=== PATIENT | female | born 1965 | race Caucasian/White ===

== ENCOUNTER 2021-11-07 10:31 | Outpatient (REF) | payer MEDICAID, SELFPAY ==
--- NOTE | ~2021-11-07 | XR_ITS ---
EXAMINATION: XR KNEE, RIGHT CLINICAL INFORMATION: Right knee pain. COMPARISON: None TECHNIQUE: AP, tunnel, lateral, and sunrise views of the right knee. FINDINGS: There is no fracture, malalignment, or joint effusion. There are tiny marginal osteophytes of the patellofemoral compartment. There is no joint space narrowing. There are prominent enthesophytes at the quadriceps and patellar tendon insertion sites on the patella. XR/XR knee RT 4V IMPRESSION: Minor patellofemoral arthrosis. Prominent enthesophytes at the quadriceps and patellar tendon insertion sites on the patella.
== END 2021-11-07 10:32 | disposition home or self-care (01) ==
LOC: HO.XRAY 10:31
PROVIDERS: Visit Provider Family Medicine
DX: M25.561 Pain in right knee (principal)
CPT/HCPCS: 73564

== ENCOUNTER 2022-04-30 09:48 | Outpatient (REF) | payer MEDICAID, SELFPAY ==
--- NOTE | ~2022-04-30 | XR_ITS ---
EXAMINATION: XR KNEE, LEFT CLINICAL INFORMATION: Calf pain. COMPARISON: Left knee 06/26/2016 TECHNIQUE: Four views of the left knee. FINDINGS: There is mild loss of the patellofemoral joint space with anterior superior and anterior inferior patellar enthesophytes. No loose bodies. No joint effusion is seen. There are no bony erosive changes. There are anterior superior patellar enthesophytes. XR/XR knee LT 4V IMPRESSION: Mild degenerative changes of the patellofemoral compartment with anterior superior and anterior inferior patellar enthesophytes. No loose bodies or joint effusion is seen.
== END 2022-04-30 09:49 | disposition home or self-care (01) ==
LOC: HO.XRAY 09:48
PROVIDERS: PCP Internal Medicine Geriatric Medicine; Visit Provider Internal Medicine Geriatric Medicine
DX: M17.12 Unilateral primary osteoarthritis, left knee (principal)
CPT/HCPCS: 73564

== ENCOUNTER 2023-06-30 18:50 | Outpatient (REF) | payer MEDICAID, SELFPAY | END 2023-06-30 18:51 | disposition home or self-care (01) | LOC: HO.HHCL 18:50 | PROVIDERS: Visit Provider Registered Nurse | DX: L72.3 Sebaceous cyst (principal); L08.9 Local infection of the skin and subcutaneous tissue, unspecified | CPT/HCPCS: 87070; 87205 ==

== ENCOUNTER 2023-07-15 09:33 | Outpatient (REF) | payer MEDICAID, SELFPAY ==
[2023-07-15 12:01] LABS: Alanine Aminotransferase 12 U/L (0-31); Albumin Level 4.3 g/dL (3.5-5.0); Alkaline Phosphatase 52 U/L (39-117); Anion Gap 10 (12-20); Aspartate Amino Transferase 18 U/L (5-31); Bilirubin Total 0.5 mg/dL (0.0-1.0); Blood Urea Nitrogen 17 mg/dL (9-16); Calcium 10.7 mg/dL (8.4-10.2); Carbon Dioxide 28 mmol/L (22-29); Chloride 107 mmol/L (96-108); Cholesterol 169 mg/dL (<200); Estimated Glomerular Filt Rate > 60; Glucose Random 94 mg/dL (60-115); HDL Cholesterol 59 mg/dL (>40); LDL Cholesterol Calculated 100 mg/dL (<100); Potassium 4.2 mmol/L (3.3-5.1); Sodium 141 mmol/L (135-145); Total Protein 7.9 g/dL (6.5-8.0); Triglycerides 51 mg/dL (<150)
== END 2023-07-15 09:34 | disposition home or self-care (01) ==
LOC: HO.HHCL 09:33
PROVIDERS: Visit Provider Internal Medicine Geriatric Medicine
DX: Z13.1 Encounter for screening for diabetes mellitus (principal); Z13.220 Encounter for screening for lipoid disorders; I10 Essential (primary) hypertension
CPT/HCPCS: 36415; 80053; 80061

== ENCOUNTER 2023-11-03 15:02 | Outpatient (REF) | payer MEDICAID, SELFPAY ==
--- NOTE | ~2023-11-03 | XR_ITS ---
EXAMINATION: XR CERVICAL SPINE CLINICAL INFORMATION: Neck pain with radiculopathy lumbar COMPARISON: None available. TECHNIQUE: 3 views of the cervical spine were obtained. FINDINGS: No acute visible fracture or dislocation. Slight straightening of normal cervical curvature which may be secondary to patient positioning versus muscle spasm. Mild multilevel degenerative changes. Visualized dens is intact. Lateral masses are symmetric. Vertebral bodies and disc spaces are maintained. Prevertebral soft tissues are unremarkable. Posterior elements are intact. Paraspinal soft tissues are unremarkable. Visualized portions of the upper chest are unremarkable. XR/XR cervical spine 3V IMPRESSION: 1. No acute visible fracture or dislocation. 2. Slight straightening of normal cervical curvature which may be secondary to patient positioning versus muscle spasm. 3. Mild multilevel degenerative changes.
== END 2023-11-03 15:03 | disposition home or self-care (01) ==
LOC: HO.HHCX 15:02
PROVIDERS: Visit Provider Internal Medicine
DX: M54.2 Cervicalgia (principal)
CPT/HCPCS: 72040

== ENCOUNTER 2024-06-01 10:21 | Outpatient (REF) | payer MEDICAID, SELFPAY ==
[2024-06-01 13:14] LABS: Anion Gap 11 (12-20); Blood Urea Nitrogen 13 mg/dL (9-16); Calcium 10.5 mg/dL (8.4-10.2); Carbon Dioxide 29 mmol/L (22-29); Chloride 106 mmol/L (96-108); Estimated Glomerular Filt Rate > 60; Glucose Random 90 mg/dL (60-115); Potassium 4.4 mmol/L (3.3-5.1); Sodium 142 mmol/L (135-145)
== END 2024-06-01 10:22 | disposition home or self-care (01) ==
LOC: HO.HHCL 10:21
PROVIDERS: Visit Provider Internal Medicine Geriatric Medicine
DX: M54.2 Cervicalgia (principal); M79.2 Neuralgia and neuritis, unspecified; I10 Essential (primary) hypertension
CPT/HCPCS: 36415; 80048

== ENCOUNTER 2024-09-10 08:39 | Outpatient (REF) | payer MEDICAID, SELFPAY ==
[2024-09-13 01:04] LABS: TS Negative Control Passed; TS Panel A 0; TS Panel B 0; TS Positive Control Passed; TSpotTB Negative (Negative)
== END 2024-09-10 08:40 | disposition home or self-care (01) ==
LOC: HO.CHCLDS 08:39
PROVIDERS: Visit Provider Internal Medicine Geriatric Medicine
DX: Z11.1 Encounter for screening for respiratory tuberculosis (principal)
CPT/HCPCS: 36415; 86481

== ENCOUNTER 2024-11-26 10:54 | Outpatient (REF) | payer MEDICAID, SELFPAY ==
[2024-11-26 13:09] LABS: MANUAL DIFF FLAG NO
[2024-11-26 13:14] LABS: Basophils Percent Auto 0.6 % (0-2); Eosinophils Absolute Auto 0.2 X10*3/uL (0.0-0.4); Eosinophils Percent Auto 4.2 % (0-4); Hematocrit 41.8 % (37.0-47.0); Hemoglobin 13.7 g/dl (12.0-16.0); Imm Gran Abs Auto 0.01 X10*3/uL (0.00-0.03); Imm Gran Pct Auto 0.2 % (0.0-0.4); Lymphocytes Absolute Auto 1.9 X10*3/uL (1.2-4.9); Lymphocytes Percent Auto 36.3 % (20-40); Mean Corpuscular HGB Conc 32.8 g/dl (31.0-35.0); Mean Corpuscular Hemoglobin 27.7 pg (27.0-33.0); Mean Corpuscular Volume 84.6 fL (80.0-98.0); Mean Platelet Volume 11.3 fL (9.4-12.3); Monocytes Absolute Auto 0.4 X10*3/uL (0.1-1.2); Monocytes Percent Auto 7.2 % (2-11); Neutrophils Absolute Auto 2.7 x10*3/uL (2.0-8.3); Neutrophils Percent Auto 51.5 % (45-73); Platelet Count 257 X10*3/uL (160-400); Red Blood Count 4.94 X10*6/uL (4.20-5.50); Red Cell Distribution Width 14.2 % (11.0-16.0); White Blood Count 5.3 X10*3/uL (4.8-10.8)
[2024-11-26 13:21] LABS: Estimated Average Glucose 111 mg/dL; Hemoglobin A1C 125.1775 umol/L; Hemoglobin A1c % 5.5 % (<6.0); Total Hemoglobin (HGBA1C) 3394.5506 umol/L
[2024-11-26 13:53] LABS: Alanine Aminotransferase 15 U/L (0-31); Alkaline Phosphatase 59 U/L (39-117); Anion Gap 8 (12-20); Aspartate Amino Transferase 24 U/L (5-31); Bilirubin Total 0.5 mg/dL (0.0-1.0); Blood Urea Nitrogen 19 mg/dL (9-16); Calcium 9.2 mg/dL (8.4-10.2); Carbon Dioxide 27 mmol/L (22-29); Chloride 108 mmol/L (96-108); Cholesterol 161 mg/dL (<200); Estimated Glomerular Filt Rate > 60; Glucose Random 88 mg/dL (60-115); HDL Cholesterol 54 mg/dL (>40); LDL Cholesterol Calculated 96 mg/dL (<100); Potassium 4.1 mmol/L (3.3-5.1); Sodium 139 mmol/L (135-145); Total Protein 7.5 g/dL (6.5-8.0); Triglycerides 58 mg/dL (<150)
[2024-11-26 20:22] LABS: TSH reflex Free T4 0.54 uIU/mL (0.32-4.0)
== END 2024-11-26 10:55 | disposition home or self-care (01) ==
LOC: HO.HHCL 10:54
PROVIDERS: Visit Provider Internal Medicine Geriatric Medicine
DX: E66.811 Obesity, class 1 (principal); E66.09 Other obesity due to excess calories; Z68.34 Body mass index [BMI] 34.0-34.9, adult; Z13.1 Encounter for screening for diabetes mellitus
CPT/HCPCS: 36415; 80053; 80061; 83036; 84443; 85025

== ENCOUNTER 2025-10-19 10:16 | Outpatient (REF) | payer MEDICAID, SELFPAY ==
--- OUTSIDE RECORDS SUMMARY | 2025-10-19 09:45 | XMS_ITS | Encounter Summary ---
Author Organization [employer] Address [address] [facility] 7 [place] [address] Care Team Providers Care Psychological Science Professor Name Role Phone Name, Garcia AKINS Primary Care Provider [phone] Reason for Visit * Reason Comments Follow up Encounter Details Date Type Department Care Team ([facility] Contact Info) Description 10/19/2025 9:45 AM EST Office Visit [facility] [address] [place] [address] [phone] Name, MD Garcia [address] [place] [phone] Benign essential hypertension (Primary Dx); Class 1 obesity due to excess calories with serious comorbidity and body mass index (BMI) of 34.0 to 34.9 in adult; Migraine without aura and without status migrainosus, not intractable; Vaccine refused by patient; Need for hepatitis C screening test Social History Tobacco Use Types Packs/Day Years Used Date Smoking Tobacco: Never Passive Smoke Exposure: Never Smokeless Tobacco: Never Tobacco Cessation:Counseling Given: Not Answered Alcohol Use Standard Drinks/Week Comments Never 0 (1 standard drink = 0.6 oz pur e alcohol) Alcohol Answer Date Recorded Frequency of Alcohol Consumption Not on file 06/01/2024 Average Number of Drinks Not on file 024 Frequency of Binge Drinking Not on file 07/2024 Score 0 06/01/2024 Depression Answer Date Recorded Patient Health Questionnaire-9 Score 4 03/31/2025 Patient Health Questionnaire-9 Score 4 03/31/2025 Last PHQ-9: Questionnaire Data Not on file 0 03/31/2025 Housing Stability Answer Date Recorded What is your housing situation today? I have angelica sing 03/31/[address] you li ve. Do you have problems with any of the following? None of the above 03/31/2025 Food Insecurity Answer Date Recorded Within the past 12 months, y ou worried that your food would run out before you got money to buy more: Never True 03/31/2025 Within the past 12 months,th e food you bought just didn't last and you didn't have enough money to get more: Never True 06/2025 Transportation Answer Date Recorded In the past 12 months, has l ack of transportation kept you from medical appts, meetings, work or from getting things needed for daily living? No 03/31/2025 Utilities Answer Date Recorded In the past 12 months, has t he electric, gas, oil or water company threatened to shut off services in your home? No 03/31/2025 Depression Answer Date Recorded Patient Health Questionnaire-2 Score 2 03/31/2025 Internet Access Answer Date Recorded Internet Access Q1 Yes 03/31/2025 Internet Access Q2 Not on file 03/31/2025 Comments No Sex and Gender Information Value Date Recorded Sex Assigned at Female 09/23/2022 10:29 AM EDT Legal Sex Female 10:29 AM EDT Gender Identity Female 09/23/2022 10:29 AM EDT Sexual Orientation Straight 09/23/2022 10 :29 AM EDT documented as of this encounter Last Filed Vital Signs Vital Sign Reading Time Taken Comments Blood Pressure 130/82 10/19/2025 9:29 AM EST Pulse 72 10/19/2025 9:29 AM EST Temperature 36.6 C (97.8 F) 10/19/2025 9:29 AM EST Respiratory Rate 18 10/19/2025 9:29 AM EST Oxygen Saturation - - Inhaled Oxygen Concentration - - Weight 97.2 kg (214 lb 3.2 oz) 10/19/2025 9:29 A M EST Height 167.6 cm (5' 6 ) 10/19/2025 9:29 AM EST Body Mass Index 34.57 10/19/2025 9:29 AM EST documented in this encounter Plan of Treatment Upcoming Encounters Date Type Department Care Team (Late st Contact Info) Description 11/01/2025 9:00 AM EST Nutrition [facility] [address] [place], [place] [phone] Fartun Milton, FUAD [address] [place] [address] 01/19/2026 10:30 AM EST Office Visit [facility] [address] [place] [address] Name, MD Garcia [address], [place] [phone] Scheduled Orders Name Type Priority Associated Diagnoses Orde r Schedule Comprehensive Metabolic Panel Lab Routine Benign essential hypertension Class 1 obesity due to excess calories with serious comorbidity and body mass index (BMI) of 34.0 to 34.9 in adult Migraine without aura and without status migrainosus, not intractable Expected: 10/19/2025 (Approximate), Expires: 10/19/2026 Lipid Panel, Standard Lab Routine Benign essential hypertension Class 1 obesity due to excess calories with serious comorbidity and body mass index (BMI) of 34.0 to 34.9 in adult Migraine without aura and without status migrainosus, not intractable Expected: 10/19/2025 (Approximate), Expires: 10/19/2026 Hemoglobin A1c Lab Routine Benign essential hypertension Class 1 obesity due to excess calories with serious comorbidity and body mass index (BMI) of 34.0 to 34.9 in adult Migraine without aura and without status migrainosus, not intractable Expected: 10/19/2025 (Approximate), Expires: 10/19/2026 TSH W/Reflex to FT4 Lab Routine Benign essential hypertension Class 1 obesity due to excess calories with serious comorbidity and body mass index (BMI) of 34.0 to 34.9 in adult Migraine without aura and without status migrainosus, not intractable Expected: 10/19/2025 (Approximate), Expires: 10/19/2026 Hepatitis C Antibody with Reflex to HCV, RNA, Quantitative, Real-Time PCR Lab Routine Need for hepatitis C screening test Expected: 10/19/2025, Expires: 10/19/2026 documented as of this encounter Visit Diagnoses Diagnosis Benign essential hypertension- Primary Essential hypertension, benign Class 1 obesity due to excess calories with serious comorbidity and body mass index (BMI) of 34.0 to 34.9 in adult Migraine without aura and without status migrainosus, not intractable Vaccine refused by patient Need for hepatitis C screening test Special screening examination for other specified viral diseases documented in this encounter Additional Health Concerns Assessment Noted Time PHQ-9 Depression Total Score: 4 03/31/20 25 9:49 AM EDT documented as of this encounter Care Teams Psychological Science Professor Relationship Specialty Start Date End Date Name, MD Garcia [address] [place] [address] PCP - General Family Medicine 04/12/16 documented as of this encounter
--- OUTSIDE RECORDS SUMMARY | 2025-10-19 12:07 | XMS_ITS ---
Author Name [facility] Organization Unknown Encounters Encounter Type Encounter Reason Primary Diagnosis Location Date Emergency Sprain of ankle, unspecified site Sprain of ankle, unspecified site [facility] 06/25/2025 Care Team Organization Name Specialty Phone Email Start Date End Da te [facility] 06/27/2025 [facility] 06/25/2025
--- OUTSIDE RECORDS SUMMARY | 2025-10-19 12:07 | XMS_ITS | Clinical Summary ---
Author Organization [employer] Address [address] [place] [address] 7t [place] [address] Care Team Providers Care Popcorn Machine Operator Name Role Phone Name, Garcia AKINS Primary Care Provider [phone] Allergies Active Allergy Reactions Criticality Noted Date Comments Doxycycline Angioedema 06/01/2018 Tramadol 10/31/2022 Medications Diclofenac Sodium 1 % gel apply (2G) by topical route 3 times every day to the affected area(s) 100 g 3 08/19/20 24 Active loratadine (Claritin) 10 MG tablet Take 1 tablet (10 mg) by mouth Once per day. 30 tablet 11 03/31/20 25 Active Additional Information Patient not taking.Reported on 06/29/2025 omeprazole (PriLOSEC) [address] capsuleIndicat ions:Neck pain TAKE 1 CAPSULE BY MOUTH EVERY DAY BEFORE A MEAL 90 capsule 1 04/12/20 25 Active amLODIPine (Norvasc) 5 MG tablet TAKE 1 TABLET(5 MG) BY MOUTH DAILY 90 tablet 3 04/27/20 25 Active SUMAtriptan (Imitrex) 25 MG tablet TAKE 1 TABLET BY MOUTH 1 TIME NEEDED FOR MIGRAINE FOR UP TO 1 DOSE. MAY REPEAT DOSE ONCE IN 2 HOURS IF NO RELIEF. DO NOT EXCEED 2 DOSES IN 24 HOURS. 9 tablet 10/05/20 25 Active naproxen (Naprosyn) 500 MG tabletIndicati ons:Migraine without aura and without status migrainosus, not intractable TAKE 1 TABLET BY MOUTH WITH BREAKFAST AND 1 TABLET WITH EVENING MEAL 40 tablet 2 10/05/20 25 Active cyclobenzaprin e (Flexeril) 10 MG tabletIndicati ons:Neck pain,Radicular pain in left arm TAKE 1 TABLET BY MOUTH TWICE DAILY NEEDED FOR MUSCLE SPASMS 60 tablet 10/05/20 Active SUMAtriptan (Imitrex) 25 MG tablet Take 1 tablet (25 mg) by mouth 1 (one) time if needed for migraine for up to 1 dose. May repeat dose once in 2 hours if no relief. Do not exceed 2 doses in 24 hours. 9 tablet 11/26/19 25 025 Discontinued(R eorder (will not trigger notification to Pharmacy)) metoprolol succinate XL (Toprol XL) 25 MG 24 hr tabletIndicati ons:Benign essential hypertension,M igraine without aura and without status migrainosus, not intractable Take 1 tablet (25 mg) by mouth Once per day. Do not crush or chew. 90 tablet 3 03/31/20 25 025 Discontinued(T herapy completed) naproxen (Naprosyn) 500 MG tabletIndicati ons:Migraine without aura and without status migrainosus, not intractable TAKE 1 TABLET BY MOUTH WITH BREAKFAST AND 1 TABLET WITH EVENING MEAL 40 tablet 2 03/31/20 25 025 Discontinued(R eorder (will not trigger notification to Pharmacy)) cyclobenzaprin e (Flexeril) 10 MG tabletIndicati ons:Neck pain,Radicular pain in left arm TAKE 1 TABLET BY MOUTH TWICE DAILY NEEDED FOR MUSCLE SPASMS 60 tablet 08/22/20 025 Discontinued(R eorder (will not trigger notification to Pharmacy)) Active Problems Problem Noted Date Diagnosed Date History of COVID-19 10/24/2022 Pain due to varicose veins of lower extremity Primary osteoarthritis of left knee 10/24/2022 Seasonal allergic reaction 10/24/2022 Class 1 obesity 02/19/2019 Benign essential hypertension 02/26/2017 H/O: hysterectomy 04/12/2016 History of cholecystectomy 04/12/2016 Chronic bilateral low back pain without sciatica 04/12/2016 Anxiety 05/24/2014 Herniated lumbar intervertebral disc 04/19/2010 Lumbar disc disease 03/01/2010 Heartburn 2009 Migraine 2009 Resolved Problems Problem Noted Date Diagnosed Date Resolved Date Severe obesity (BMI 35.0-39. 9) with comorbidity (CMS/HCC) 2009 07/15/2023 Encounters Date Type Department Care Team Description 10/19/2025 9:45 AM EST Office Visit [facility] [address] [place] [phone] Garcia Dc MD Benign essential hypertension (Primary Dx); Class 1 obesity due to excess calories with serious comorbidity and body mass index (BMI) of 34.0 to 34.9 in adult; Migraine without aura and without status migrainosus, not intractable; Vaccine refused by patient; Need for hepatitis C screening test 10/19/2025 Travel 10/05/2025 Refill [facility] [address] [place] [phone] Garcia Dc MD Migraine without aura and without status migrainosus, not intractable; Neck pain; Radicular pain in left arm 08/20/2025 Refill [facility] [address] [place] [phone] Garcia Dc MD Neck pain; Radicular pain in left arm 08/08/2025 Refill [facility] [address] [place] [address] Garcia Dc MD Benign essential hypertension; Migraine without aura and without status migrainosus, not intractable 07/22/2025 9:15 AM EDT Office Visit [address] [phone] Garcia Dc MD Class 1 obesity due to excess calories with serious comorbidity and body mass index (BMI) of 34.0 to 34.9 in adult (Primary Dx) 07/22/2025 Travel 07/21/2025 Telephone [facility] [address] [place] [phone] Kailyn Boo [place] CHARTPREP 07/21/2025 Travel from Last 3 Months Immunizations Immunization Administration Dates Next Due Influenza injectable quadriv alent IIV4 with preservative 01/31/2020,10/10/2017 Influenza injectable quadriv alent preservative free 10/08/2021,08/10/2020,12/08/2014 Influenza, IIV3, injectable 09/11/2015,1 01/02/2013,09/10/2012,2009 Influenza, Unspecified 12/08/2014 Influenza, seasonal, injecta ble, preservative free 09/02/2024,10/31/2022,09/11/2015,2012,09/10/2012,12/11/2009 Moderna Covid-19 Vaccine 12+ 03/26/2021,02/27/20 21 Novel [id number], preservative-free 12/11/2009 PPD Test 06/04/2010 Pfizer Covid-19 Vaccine 12+ 06/07/2022, 1 Pfizer Covid-19 Vaccine 12+ tesha-sucrose ([place]arranza Cap) 06/07/2022 Tdap 11/14/2022,2009 Zoster, Recombinant 06/07/2022,04/01/2022 Family History Medical History Relation Name Comments Breast cancer Cousin 1 Breast cancer Cousin 2 Breast cancer Cousin 3 Breast cancer Mother Relation Name Status Comments Cousin 1 Alive Cousin 2 Alive Cousin 3 Mother Social History Tobacco Use Types Packs/Day Years [...] your housing situation today? I have angelica leroy 03/31/[address] you li [...] Orientation Straight 09/23/2022 10 :29 AM EDT Last Filed Vital Signs Vital Sign Reading Time Taken Comments Blood Pressure 130/82 10/19/2025 9:29 AM EST Pulse 72 10/19/2025 9:29 AM EST Temperature 36.6 C (97.8 F) 10/19/2025 9:29 AM EST Respiratory Rate 18 10/19/2025 9:29 AM EST Oxygen Saturation 97% 07/22/2025 9:11 AM EDT Inhaled Oxygen Concentration - - Weight 97.2 kg (214 lb 3.2 oz) 10/19/2025 9:29 A M EST Height 167.6 cm (5' 6 ) 10/19/2025 9:29 AM EST Body Mass Index 34.57 10/19/2025 9:29 AM EST Plan of Treatment Upcoming Encounters Date Type Department Care Team (Late st Contact Info) Description 11/01/2025 9:00 AM EST Nutrition [facility] [address] [place] [phone] [place] [address] 01/19/2026 10:30 AM EST Office Visit [facility] [address] [place] [phone] Name, MD Garcia [address] [place] [address] Health Maintenance Due Date Last Done Comments CT Colonography 1967 FIT DNA/Cologuard 1967 FIT 1967 FOBT 1967 HIV Screening 1967 Sigmoidoscopy 1967 Hepatitis C Screening 1985 Hepatitis B Vaccines (1 of 3 - 19+ 3-dose series) 1986 Pap Smear 1988 HPV/Cotest 1997 Pneumococcal Vaccine: 50+ Years (1 of 1 - PCV) 2017 COVID-19 Vaccine ( season) 2025 06/07/2022, 06/07/2022, 10/10/2021, Additional history exists Influenza Vaccine (#1) 2025 , 10/31/2022, 10/08/2021, Additional history exists Depression Screening 03/31/2026 03/31/2025, 03/31/20 25 SDOH Screening 03/31/2026 03/31/2025 Mammogram 07/11/2026 07/11/2025, 06/24, 04/13/2025, Additional history exists Disability Screening 07/21/2026 07/21/2025 Alcohol/Substance Use Screening 07/22/2026 07/22/2025 Tobacco Screening 10/19/2026 10/19/2025 Colonoscopy 05/09/2028 05/09/2018, 05/07/2008 Colorectal Cancer Screening 05/09/2028 Lipid Panel 11/26/2029 11/26/2024, 0812/2022, 07/11/2022, Additional history exists DTaP/Tdap/Td Vaccines (3 - Td or Tdap) 11/14/2032 11/14/2022, 2009 RSV Patients and Patients Aged 60 years or older (1 - 1-dose 75+ series) 2042 Zoster Vaccines Completed 06/07/2022, 04/01/2022 Cervical Cancer Screening Discontinued HIB Vaccines Aged Out No longer eligi ble based on patient's age to complete this topic HPV Vaccines Aged Out No longer eligi ble based on patient's age to complete this topic Hepatitis A Vaccines Aged Out No long er eligible based on patient's age to complete this topic IPV Vaccines Aged Out No longer eligi ble based on patient's age to complete this topic Meningococcal B Vaccine Aged Out No l onger eligible based on patient's age to complete this topic Meningococcal Vaccine Aged Out No ion luis eligible based on patient's age to complete this topic RSV under 20 months Aged Out No longe r eligible based on patient's age to complete this topic Rotavirus Vaccines Aged Out No longer eligible based on patient's age to complete this topic Procedures Procedure Name Priority Date/Time Associated Diagnosis Comments MAMMOGRAPHY Routine 04/13/2025 LIPID PANEL, STANDARD Routine 11/26/2024 10:56 AM EST Class 1 obesity due to excess calories with serious comorbidity and body mass index (BMI) of 34.0 to 34.9 in adult COLONOSCOPY Routine 05/09/2018 from Last 3 Months or Most Recently Relevant to Health Maintenance Results * Mammography (04/13/2025) Mammogram BIRADS 1 Normal, Abnormal, BIRADS 1 , BIRADS 2 Anatomical Region Laterality Modality Other us Historical Provider MD HEALTH MAINTENANCE Final Result * Lipid Panel, Standard (11/26/2024 10:56 AM EST) Triglycerides 58 <150 mg/dL [facility] Comment:Desirable Triglyceri de: less than 150 mg/dLBorderline High Triglyceride 150-199 mg/dLHigh Triglyceride: 200-499 mg/dLVery High Triglyceride: greater than or equal to 5OO mg/dL Cholesterol 161 <200 mg/dL [facility] Comment:Desirable Cholestero l: less than 200 mg/dLBorderline High Cholesterol: 200-239 mg/dLHigh Cholesterol: greater than 239 mg/dL LDL Cholesterol Calculated 96 <100 mg/dL [facility] Comment:Desirable LDL: less than 100 mg/dLNear Optimal/Above Optimal LDL: 110- 129 mg/dLBorderline High LDL: 130-159 mg/dLHigh LDL: 160-189 mg/dLVery High LDL: greater than or equal to 190 mg/dL HDL Cholesterol 54 >40 mg/dL [facility] Comment:Desirable HDL: great er than 40 mg/dL Note: This HDL assay may give artificially low results in patients with liver disease. Blood Venous blood specimen / Unknown 11/26/2024 10:56 AM EST 11/26/2024 1:07 PM EST Garcia Name LAB BLOOD ORDERABLES Final Resul t [facility] [address] [place] [address] [phone] * Colonoscopy (05/09/2018) [facility] Colonoscopy Normal Normal Comment:repeat colonoscopy i n 10yrs Historical Provider HEALTH MAINTENANCE Final Result from Last 3 Months or Most Recently Relevant to Health Maintenance Insurance [facility] [address] [place] [address] [place] [address] [place] [address] [id number] [place] [id number] Care Teams Popcorn Machine Operator Relationship Specialty Start Date End Date Name, MD Garcia [address] [place] [phone] PCP - General Family Medicine 04/12/16
--- OUTSIDE RECORDS SUMMARY | 2025-10-19 12:07 | XMS_ITS | Encounter Summary ---
Author Organization [employer] Address [address] [facility] 7 [place] [address] Care Team Providers Care Nuclear Waste Process Operator Name Role Phone Name, Garcia AKINS Primary Care Provider [phone] Reason for Visit * Reason Onset Date Comments Med Refill 10/30/2024 Encounter Details Date Type Department Care Team ([facility] st Contact Info) Description 10/30/2024 Refill [facility] [address] [place], [place] [phone] Name, MD Garcia [address] [place] [address] Social History Tobacco Use Types Packs/Day Years Used Date Smoking Tobacco: Never Passive Smoke Exposure: Never Smokeless Tobacco: Never Alcohol Use Standard Drinks/Week Comments Never 0 (1 standard drink = 0.6 oz pur e alcohol) Alcohol Answer Date Recorded Frequency of Alcohol Consumption Not on file 06/01/2024 Average Number of Drinks Not on file 024 Frequency of Binge Drinking Not on file 07/2024 Score 0 06/01/2024 Depression Answer Date Recorded Patient Health Questionnaire-9 Score 0 02/27/2024 Patient Health Questionnaire-9 Score 0 02/27/2024 Last PHQ-9: Questionnaire Data Not on file 0 02/27/2024 Housing Stability Answer Date Recorded What is your housing situation today? I have angelica leroy 02/27/[address] you li ve. Do you have problems with any of the following? None of the above 02/27/2024 Food Insecurity Answer Date Recorded Within the past 12 months, y ou worried that your food would run out before you got money to buy more: Never True 02/27/2024 Within the past 12 months,th e food you bought just didn't last and you didn't have enough money to get more: Never True 03/2024 Transportation Answer Date Recorded In the past 12 months, has l ack of transportation kept you from medical appts, meetings, work or from getting things needed for daily living? No 02/27/2024 Utilities Answer Date Recorded In the past 12 months, has t he electric, gas, oil or water company threatened to shut off services in your home? No 02/27/2024 Depression Answer Date Recorded Patient Health Questionnaire-2 Score 0 02/27/2024 Comments Unknown Sex and Gender Information Value Date Recorded Sex Assigned at Female 09/23/2022 10:29 AM EDT Legal Sex Female 10:29 AM EDT Gender Identity Female 09/23/2022 10:29 AM EDT Sexual Orientation Straight 09/23/2022 10 :29 AM EDT documented as of this encounter Plan of Treatment Upcoming Encounters Date Type Department Care Team (Late st Contact Info) Description 11/01/2025 9:00 AM EST Nutrition [facility] [address] [place] [phone] [place] [address] 01/19/2026 10:30 AM EST Office Visit [facility] [address] [place] [phone] Name, MD Garcia [address] [place] [phone] documented as of this encounter Visit Diagnoses Not on filedocumented in this encounter Additional Health Concerns Assessment Noted Time PHQ-9 Depression Total Score: 0 02/27/20 24 9:04 AM EDT documented as of this encounter Care Teams Nuclear Waste Process Operator Relationship Specialty Start Date End Date Name, MD Garcia [address] [place] [phone] PCP - General Family Medicine 04/12/16 documented as of this encounter
--- OUTSIDE RECORDS SUMMARY | 2025-10-19 12:07 | XMS_ITS | Encounter Summary ---
Author Organization [facility] Address [address] [place] [address] 7 [place] [address] Care Team Providers Care Pressing Machine Operator Name Role Phone Name, Garcia AKINS Primary Care Provider [phone] Reason for Visit * Reason Onset Date Comments Med Refill 05/20/2025 Encounter Details Date Type Department Care Team ([facility] st Contact Info) Description 05/20/2025 Refill [facility] MEDICINE [address] [place], [place] [phone] Name, MD Garcia [address] [place] [address] Neck pain; Radicular pain in left arm Social History Tobacco Use Types Packs/Day Years [...] Access Q2 Not on file 03/31/2025 Comments Unknown Sex and Gender Information Value Date Recorded Sex Assigned at Female 09/23/2022 10:29 AM EDT Legal Sex Female 10:29 AM EDT Gender Identity Female 09/23/2022 10:29 AM EDT Sexual Orientation Straight 09/23/2022 10 :29 AM EDT documented as of this encounter Plan of Treatment Upcoming Encounters Date Type Department Care Team (Late st Contact Info) Description 11/01/2025 9:00 AM EST Nutrition [facility] DIABETES/NUTRITION [address] [place] [address] Fartun Milton, RD [address] [place] [address] 01/19/2026 10:30 AM EST Office Visit [facility] MEDICINE [address] [place] [phone] Garcia Dc MD [address] [place] [address] documented as of this encounter Visit Diagnoses Diagnosis Neck pain Cervicalgia Radicular pain in left arm Unspecified neuralgia, neuritis, and radiculitis documented in this encounter Additional Health Concerns Assessment Noted Time PHQ-9 Depression Total Score: 4 03/31/20 25 9:49 AM EDT documented as of this encounter Care Teams Pressing Machine Operator Relationship Specialty Start Date End Date Garcia Dc MD [address] [place] [address] PCP - General Family Medicine 04/12/16 documented as of this encounter
--- OUTSIDE RECORDS SUMMARY | 2025-10-19 12:08 | XMS_ITS | Encounter Summary ---
Author Organization [facility] Address [address] [place] [address] 7 [place] [address] Care Team Providers Care Material Coordinator Name Role Phone Name, Garcia AKINS Primary Care Provider [phone] Reason for Visit * Reason Comments Med Refill Encounter Details Date Type Department Care Team ([facility] st Contact Info) Description 12/01/[address] [facility] CHC MED & PEDS [address] [place] [address] Carmelo Ochoa MD [address] [place] [address] Neck pain Social History Tobacco Use Types Packs/Day Years Used Date Smoking Tobacco: Never Passive Smoke Exposure: Never Smokeless Tobacco: Never Alcohol Use Standard Drinks/Week Comments Never 0 (1 standard drink = 0.6 oz pur e alcohol) Depression Answer Date Recorded Patient Health Questionnaire-9 Score 2 10/31/2022 Housing Stability Answer Date Recorded What is your housing situation today? I have angelica leroy 09/23/[address] you li ve. Do you have problems with any of the following? None of the above 09/23/2023 Food Insecurity Answer Date Recorded Within the past 12 months, y ou worried that your food would run out before you got money to buy more: Never True 09/23/2023 Within the past 12 months,th e food you bought just didn't last and you didn't have enough money to get more: Never True Transportation Answer Date Recorded In the past 12 months, has l ack of transportation kept you from medical appts, meetings, work or from getting things needed for daily living? No 09/23/2023 Utilities Answer Date Recorded In the past 12 months, has t he electric, gas, oil or water company threatened to shut off services in your home? No 09/23/2023 Depression Answer Date Recorded Patient Health Questionnaire-2 Score 2 10/31/2022 Comments Unknown Sex and Gender Information Value Date Recorded Sex Assigned at Female 09/23/2022 10:29 AM EDT Legal Sex Female 10:29 AM EDT Gender Identity Female 09/23/2022 10:29 AM EDT Sexual Orientation Straight 09/23/2022 10 :29 AM EDT documented as of this encounter Plan of Treatment Upcoming Encounters Date Type Department Care Team (Late st Contact Info) Description 11/01/2025 9:00 AM EST Nutrition [facility] DIABETES/NUTRITION [address] [place] [address] Fartun Milton, FUAD [address] [place] [address] 01/19/2026 10:30 AM EST Office Visit [facility] MEDICINE [address] [place] [address] NameGarcia MD [address] [place] [address] documented as of this encounter Visit Diagnoses Diagnosis Neck pain Cervicalgia documented in this encounter Additional Health Concerns Assessment Noted Time PHQ-9 Depression Total Score: 2 10/31/20 22 9:21 AM EST documented as of this encounter Care Teams Material Coordinator Relationship Specialty Start Date End Date NameGarcia MD [address] [place] [address] PCP - General Family Medicine 04/12/16 documented as of this encounter
--- OUTSIDE RECORDS SUMMARY | 2025-10-19 12:08 | XMS_ITS | Encounter Summary ---
Author Organization [facility] [employer] [facility] Address [address] [place] [address] 7 [place] [address] Care Team Providers Care Market Development Executive Name Role Phone Name, Garcia AKINS Primary Care Provider [phone] Encounter Details Date Type Department Care Team (Late Contact Info) Description 04/25/2023 Abstract [facility] MEDICINE [address] [place] [address] Name, MD Garcia [address] [place] [address] Social History Tobacco Use Types Packs/Day Years Used Date Smoking Tobacco: Never Smokeless Tobacco: Never Alcohol Use Standard Drinks/Week Comments Never 0 (1 standard drink = 0.6 oz pur e alcohol) Depression Answer Date Recorded Patient Health Questionnaire-9 Score 2 10/31/2022 Depression Answer Date Recorded Patient Health Questionnaire-2 Score 2 10/31/2022 Comments Unknown Sex and Gender Information Value Date Recorded Sex Assigned at Female 09/23/2022 10:29 AM EDT Legal Sex Female 10:29 AM EDT Gender Identity Female 09/23/2022 10:29 AM EDT Sexual Orientation Straight 09/23/2022 10 :29 AM EDT COVID-19 Exposure Response Date Recorded In the last 10 days, have yo u been in contact with someone who was confirmed or suspected to have Coronavirus/COVID-19? No / Unsure 04/04/2023 8:51 AM EDT documented as of this encounter Plan of Treatment Upcoming Encounters Date Type Department Care Team (Late Contact Info) Description 11/01/2025 9:00 AM EST Nutrition [facility] DIABETES/NUTRITION [address] [place] [address] Fartun Milton, FUAD [address] [place] [address] 01/19/2026 10:30 AM EST Office Visit [facility] MEDICINE [address] [place] [address] Name, MD Garcia [address] [place] [address] documented as of this encounter Visit Diagnoses Not on filedocumented in this encounter Additional Health Concerns Assessment Noted Time PHQ-9 Depression Total Score: 2 10/31/20 22 9:21 AM EST documented as of this encounter Care Teams Market Development Executive Relationship Specialty Start Date End Date NameGarcia MD [address] [place] [address] PCP - General Family Medicine 04/12/16 documented as of this encounter
--- OUTSIDE RECORDS SUMMARY | 2025-10-19 12:08 | XMS_ITS | Encounter Summary ---
Author Organization [employer] Address [address] [place] [address] 7 [place] [address] Care Team Providers Care Ski Topper Name Role Phone Name, Garcia AKINS Primary Care Provider [phone] Reason for Visit * Reason Onset Date Comments Med Refill 07/08/2025 Encounter Details Date Type Department Care Team ([facility] st Contact Info) Description 07/08/2025 Refill [facility] MEDICINE [address] [place], [place] [phone] Name, MD Garcia [address] [place] [address] Benign essential hypertension; Migraine without aura and without status migrainosus, not intractable Social History Tobacco Use Types Packs/Day Years [...] Info) Description 11/01/2025 9:00 AM EST Nutrition [facility] DIABETES/NUTRITION [address] [place] [address] Fartun Milton, RD [address] [place] [address] 01/19/2026 10:30 AM EST Office Visit [facility] MEDICINE [address] [place] [address] Garcia Dc MD [address] [place] [address] documented as of this encounter Visit Diagnoses Diagnosis Benign essential hypertension Essential hypertension, benign Migraine without aura and without status migrainosus, not intractable documented in this encounter Additional Health Concerns Assessment Noted Time PHQ-9 Depression Total Score: 4 03/31/20 25 9:49 AM EDT documented as of this encounter Care Teams Ski Topper Relationship Specialty Start Date End Date Garcia Dc MD [address] [place] [address] PCP - General Family Medicine 04/12/16 documented as of this encounter
--- OUTSIDE RECORDS SUMMARY | 2025-10-19 12:08 | XMS_ITS | Encounter Summary ---
Author Organization [facility] Address [address] [place] [address] 7 [place] [address] Care Team Providers Care Spectrographer Name Role Phone Name, Garcia AKINS Primary Care Provider [phone] Reason for Visit * Reason Onset Date Comments Med Refill 08/08/2025 Encounter Details Date Type Department Care Team (Late st Contact Info) Description 08/08/2025 Refill [facility] MEDICINE [address] [place], [place] [phone] Name, MD Garcia 230 [place] [address] Benign essential hypertension; Migraine without aura and [...] Info) Description 11/01/2025 9:00 AM EST Nutrition [facility] DIABETES/NUTRITION [address] [place] [address] Fartun Milton, RD [address] [place] [address] 01/19/2026 10:30 AM EST Office Visit [facility] MEDICINE [address] [place] [address] Garcia Dc MD [address] [place] [address] documented as of this encounter Visit Diagnoses Diagnosis Benign essential hypertension Essential hypertension, benign Migraine without aura and without status migrainosus, not intractable documented in this encounter Additional Health Concerns Assessment Noted Time PHQ-9 Depression Total Score: 4 03/31/20 25 9:49 AM EDT documented as of this encounter Care Teams Spectrographer Relationship Specialty Start Date End Date Garcia Dc MD [address] [place] [address] PCP - General Family Medicine 04/12/16 documented as of this encounter
--- OUTSIDE RECORDS SUMMARY | 2025-10-19 12:08 | XMS_ITS | Encounter Summary ---
Author Organization [employer] Address [address] [facility] 7 [place] [address] Care Team Providers Care Meat Carrier Name Role Phone Name, Garcia AKISN Primary Care Provider [phone] Reason for Visit * Reason Onset Date Comments Med Refill 01/08/2024 Encounter Details Date Type Department Care Team ([facility] st Contact Info) Description 01/08/2024 Telephone [facility] MEDICINE [address] [place], [place] [phone] Name, MD Garcia [address] [place] [address] Med Refill Social History Tobacco Use Types Packs/Day Years [...] AM EDT documented as of this encounter Miscellaneous Notes * Telephone Encounter - Monik Moncada LPN - 01/08/2024 9:41 AM EST Medication was sent to [facility] #[id number] on 10/31/23 #90 with 1 refill. * Telephone Encounter - Gerardo Oscar - 01/08/2024 9:22 AM EST TC from pt requesting medication refill. Medications needing refill: omeprazole (PriLOSEC) [address] capsule To be sent to: [facility] #[id number] documented in this encounter Plan of Treatment Upcoming Encounters Date Type Department Care Team (Late st Contact Info) Description 11/01/2025 9:00 AM EST Nutrition [facility] DIABETES/NUTRITION [address] [place] [address] Fartun Milton, FUAD [address] [place] [address] 01/19/2026 10:30 AM EST Office Visit [facility] MEDICINE [address] [place] [address] [phone] Name, MD Garcia [address] [place] [address] documented as of this encounter Visit Diagnoses Not on filedocumented in this encounter Additional Health Concerns Assessment Noted Time PHQ-9 Depression Total Score: 2 10/31/20 22 9:21 AM EST documented as of this encounter Care Teams Meat Carrier Relationship Specialty Start Date End Date Name, MD Garcia [address] [place] [address] PCP - General Family Medicine 04/12/16 documented as of this encounter
--- OUTSIDE RECORDS SUMMARY | 2025-10-19 12:08 | XMS_ITS | Encounter Summary ---
Author Organization [facility] Address [address] [facility] 7t [place] [address] Care Team Providers Care Sueding Machine Operator Name Role Phone Name, Garcia AKINS Primary Care Provider [phone] Encounter Details Date Type Department Care Team (Latest Contact Info) Description 10/19/2025 Travel Social History Tobacco Use Types Packs/Day Years [...] Info) Description 11/01/2025 9:00 AM EST Nutrition [facility] DIABETES/NUTRITION [address] [place] [address] [place] [address] 01/19/2026 10:30 AM EST Office Visit [facility] MEDICINE [address] [place] [address] Name, MD Garcia [address] [place] [address] documented as of this encounter Visit Diagnoses Not on filedocumented in this encounter Additional Health Concerns Assessment Noted Time PHQ-9 Depression Total Score: 4 03/31/20 25 9:49 AM EDT documented as of this encounter Care Teams Sueding Machine Operator Relationship Specialty Start Date End Date Name, MD Garcia [address] [place] [address] PCP - General Family Medicine 04/12/16 documented as of this encounter
--- OUTSIDE RECORDS SUMMARY | 2025-10-19 12:08 | XMS_ITS | Encounter Summary ---
Author Organization [employer] Address [address] [facility] 7 [place] [address] Care Team Providers Care Wire Fence Erector Name Role Phone Name, Garcia AKINS Primary Care Provider [phone] Reason for Visit * Reason Onset Date Comments Results 11/07/2023 Encounter Details Date Type Department Care Team ([facility] Contact Info) Description 11/07/2023 Telephone [facility] MEDICINE [address] [place], [place] [phone] Name, MD Garcia [address] [place] [address] Results Social History Tobacco Use Types Packs/Day Years [...] encounter Miscellaneous Notes * Telephone Encounter - Cherelle Huynh RN - 11/12/2023 11:07 AM EST Placed call to pt regarding message below. Pt informed of XR results and provider recommendations. Pt agrees to PT referral placement and is also requesting a refill on muscle relaxer as pt states has been effective for pain control. Pt informed message would be sent to provider. Pt agrees with plan. * Telephone Encounter - Viridiana Vasquez - 11/07/2023 10:57 AM EST Tc from pt requesting a call back with results on 11/03/2023 cervical images. documented in this encounter Plan of Treatment Upcoming Encounters Date Type Department Care Team (Late st Contact Info) Description 11/01/2025 9:00 AM EST Nutrition [facility] DIABETES/NUTRITION [address] [place] [address] [place] [address] 01/19/2026 10:30 AM EST Office Visit [facility] MEDICINE [address] [place] [address] Name, MD Garcia [address] [place] [address] documented as of this encounter Visit Diagnoses Not on filedocumented in this encounter Additional Health Concerns Assessment Noted Time PHQ-9 Depression Total Score: 2 10/31/20 22 9:21 AM EST documented as of this encounter Care Teams Wire Fence Erector Relationship Specialty Start Date End Date Name, MD Garcia [address] [place] [address] PCP - General Family Medicine 04/12/16 documented as of this encounter
--- OUTSIDE RECORDS SUMMARY | 2025-10-19 12:08 | XMS_ITS | Encounter Summary ---
Author Organization [facility] Address [address] [facility] 7 [place] [address] Care Team Providers Care Gold Beater Name Role Phone Name, Garcia AKINS Primary Care Provider [phone] Encounter Details Date Type Department Care Team ([facility] Contact Info) Description 11/12/2023 Orders Only [facility] CHC MED & PEDS [address] [place], [place] [phone] Carmelo Ochoa MD [address] [place] [address] Neck pain Social History Tobacco Use Types [...] Info) Description 11/01/2025 9:00 AM EST Nutrition [facility] DIABETES/NUTRITION [address] [place] [address] [place] [address] 01/19/2026 10:30 AM EST Office Visit [facility] MEDICINE 230 [place] [address] Name, MD Garcia [address] [place] [address] documented as of this encounter Visit Diagnoses Diagnosis Neck pain Cervicalgia documented in this encounter Additional Health Concerns Assessment Noted Time PHQ-9 Depression Total Score: 2 10/31/20 22 9:21 AM EST documented as of this encounter Care Teams Gold Beater Relationship Specialty Start Date End Date Name, MD Garcia [address] [place] [address] PCP - General Family Medicine 04/12/16 documented as of this encounter
--- OUTSIDE RECORDS SUMMARY | 2025-10-19 12:08 | XMS_ITS | Clinical Summary ---
Author Organization [facility] Address [address] [place] [phone] Phone Care Team Providers Care Research Animal Facility Supervisor Name Role Phone Name, Garcia AKINS Primary Care Provider [phone] Allergies No known active allergies Medications metoprolol tartrate (LOPRESSOR) 25 mg tablet TAKE 1 TABLET BY MOUTH TWICE DAILY 04/01/2022 Active omeprazole (PriLOSEC) [address] capsule TAKE 1 CAPSULE BY MOUTH EVERY DAY BEFORE A MEAL 05/16/2022 Active ibuprofen (ADVIL,MOTRIN) 600 mg tablet TAKE 1 TABLET BY MOUTH EVERY 6 HOURS WITH FOOD NEEDED 03/21/2022 Active amLODIPine (NORVASC) 5 mg tablet Take 5 mg by mouth daily. 05/01/2022 Active diclofenac (VOLTAREN) 1 % topical gel APPLY 2 GRAMS TO THE AFFECTED AREA THREE TIMES DAILY 04/30/2022 Active cyclobenzaprine (FLEXERIL) 10 mg tablet Take 1 Tab by mouth 3 times daily as needed for Muscle spasms. 03/11/2016 Active omeprazole (PriLOSEC) [address] capsule TAKE ONE CAPSULE BY MOUTH EVERY DAY 10/17/2015 Active naproxen (NAPROSYN) 500 mg tablet Take 1 Tab by mouth 2 times daily (with meals). 10/16/2015 Active phentermine 15 mg capsule Take 1 capsule (15 mg total) by mouth. 03/31/2025 Active Active Problems Problem Noted Date Diagnosed Date Benign essential hypertension 04/02/2018 Anxiety 05/24/2014 Herniated lumbar intervertebral disc 04/19/2010 Lumbar disc disease 03/01/2010 Heartburn 2009 Migraine 2009 Severe obesity (BMI 35.0-39. 9) with comorbidity (CMS/HCC V24, CMS/HCC V28) 2009 Encounters Date Type Department Care Team Description 08/29/2025 1:20 PM EDT Office Visit [address] [phone] David Moya MD Lump in lower outer quadrant of right breast (Primary Dx); At high risk for breast cancer; Screening mammogram for breast cancer from Last 3 Months Immunizations Immunization Administration Dates Next Due H1N1 Inj Preservative Free 12/11/2009 Influenza trivalent, 0.5mL, preservative free (Fluarix; FluLaval; Fluzone) ages 6mo and older (Afluria) 3 years and older 09/11/2015,11/01/2013,09/10/2012,2009 Influenza, Unspecified 12/08/2014 Tdap Tetanus diptheria acell ular pertussis (Boostrix; Adacel) 7yo and older 2009 Surgical History Surgery Date Site/Laterality Comments TUBAL LIGATION PROCEDURE: HISTORICAL TUBAL LIGATION OTHER SURGICAL HISTORY PROCEDURE: LA HYSTEROSCOPY ENDOMETRIAL ABLATION SALPINGOOPHORECTOMY 12/19/2020 PROCEDURE: LA LAPAROSCOPY W/RMVL ADNEXAL STRUCTURES; COMMENT: right oopherectomy and bilateral salpingectomy Medical History Medical History Date Comments Esophageal reflux DX:Esophageal reflux Benign essential hypertension 04/02/2018 DX :Benign essential hypertension Severe obesity (BMI 35.0-39. 9) with comorbidity ([facility] V24, [facility] V28) 2009 DX:Severe obesity (BMI 35.0- 39.9) with comorbidity ([facility]) At high risk for breast cancer 2009 D X:At high risk for breast cancer; COMMENT: Mother; Lifetime time risk is > 20%; 08/2018 pt's genetic testing negative Anxiety 05/24/2014 DX:Anxiety Heartburn 2009 DX:Heartburn Migraine 2009 DX:Migraine Lumbar disc disease 03/01/2010 DX:Lumbar di sc disease Herniated lumbar intervertebral disc 04/19/2010 DX:Herniated lumbar intervertebral disc Benign essential hypertension 04/02/2018 Family History Medical History Relation Name Comments Breast cancer Father's side niece Cataracts Maternal Grandmother stomach cancer (80) Breast cancer Mother 62 Breast cancer Mother's side niece x2 Breast cancer Other 1 2 m cousins 47 [phone] & 54 Breast cancer Other 2 1 p cousin 45 Breast cancer Sister 1 Other cancer Uncle paternal either colon or prostate Blindness Neg Hx Colon cancer Neg Hx Glaucoma Neg Hx Macular degeneration Neg Hx Ovarian cancer Neg Hx Strabismus Neg Hx Relation Name Status Comments Brother 1 Alive Brother 2 Alive Daughter 1 Alive Daughter 2 Alive Daughter 3 Alive Asthma Daughter 4 Alive Ashtma Father Alive HTN Father's side Maternal Grandmother Mother 62 Alive breast cancer, CHF Mother's side Other 1 2 m cousins 47 54 Alive Other 2 1 p cousin 45 Alive Sister 1 Alive Sister 2 Alive Uncle paternal Alive Social History Tobacco Use Types Packs/Day Years Used Date Smoking Tobacco: Never Smokeless Tobacco: Never Alcohol Use Standard Drinks/Week Comments No 0 (1 standard drink = 0.6 oz pur e alcohol) Comments No Sex and Gender Information Value Date Recorded Sex Assigned at Not on file Legal Sex Female 4:34 AM EST Gender Identity Not on file Sexual Orientation Not on file Obstetrics History Para Term AB IAB SAB Ectopic Multiple Livin g Live Births 4 Last Filed Vital Signs Vital Sign Reading Time Taken Comments Blood Pressure 139/89 08/29/2025 1:25 PM EDT Pulse 97 08/29/2025 1:25 PM EDT Temperature 36.2 C (97.1 F) 08/29/2025 1:25 PM EDT Respiratory Rate - - Oxygen Saturation - - Inhaled Oxygen Concentration - - Weight 97.1 kg (214 lb) 07/11/2025 1:53 PM EDT Height 167.6 cm (5' 6 ) 04/13/2025 10:57 AM EDT Body Mass Index 34.54 04/13/2025 10:57 AM EDT Plan of Treatment Upcoming Encounters Date Type Department Care Team (Late st Contact Info) Description 02/27/2026 10:20 AM EDT Office Visit [facility] [address] [place] [phone] David Moya MD [address] [place] [address] Health Maintenance Due Date Last Done Comments Colorectal Cancer Screening: Colonoscopy 1967 Hepatitis B Vaccines (1 of 3 - 19+ 3-dose series) 1986 Pneumococcal Vaccine: 50+ Years (1 of 1 - PCV) 2017 RSV Immunization Adult Patients (1 - Risk 50-74 years 1-dose series) 2017 HIV Screening 11/02/2022 Hepatitis C Screening 11/02/2022 Social Influencers of Health Screening 11/02/2022 Hypertension/CHF/CAD Annual BMP Blood Test 11/09/2022 10/01/2015 Depression Screening 11/24/2024 COVID-19 Vaccine ( season) 2025 06/07/2022, 10/10/2021, 03/26/2021, Additional history exists Influenza Vaccine (#1) 2025 4, 10/31/2022, 10/08/2021, Additional history exists Breast Cancer Screening 04/13/2027 04/13/20 25, 02/19/2024, 02/19/2024, Additional history exists Cholesterol Screening (Lipid Panel) 11/26/2029 11/26/2024, 10/01/2015 DTaP,Tdap,and Td Vaccines (3 - Td or Tdap) 11/14/2032 11/14/2022, 2009 Zoster Vaccines Completed 06/07/2022, 04/01/2022 HIB Vaccines Aged Out No longer eligi [...] on patient's age to complete this topic MMR Vaccines Aged Out No longer eligi ble based on patient's age to complete this topic Meningococcal ACWY Vaccine Aged Out N o longer eligible based on patient's age to complete this topic Meningococcal B Vaccine Aged Out No l onger eligible based on patient's age to complete this topic RSV Immunization Patients Under 20 months Aged Out No longer eligible based on patient's age to complete this topic Varicella Vaccines Aged Out No longer eligible based on patient's age to complete this topic Procedures Procedure Name Priority Date/Time Associated Diagnosis Comments MG MAMMO DIGITAL SCREENING W VIET BILAT Routine 04/13/2025 11:05 AM EDT Encounter for screening mammogram for breast cancer HM ANNUAL BMP BLOOD TEST Routine 10/01/2015 LIPID PANEL Routine 10/01/2015 from Last 3 Months or Most Recently Relevant to Health Maintenance Results * MG Mammo Digital Screening w Viet bilat (04/13/2025 11:05 AM EDT) Anatomical Region Laterality Modality Breast Bilateral Mammography 04/13/2025 5:11 PM EDT Impressions 04/13/2025 5:19 PM EDT No mammographic evidence of malignancy. No suspicious interval change. A negative mammogram in the presence of a clinically suspicious palpable abnormality does not preclude the possibility of malignancy or alter the indications for biopsy. ASSESSMENT: BI-RADS 1: NEGATIVE RECOMMENDATION(S): 1: Routine screening mammogram BILATERAL in 1 year. [facility]amm[facility] [address], [address] -------- FINAL REPORT -------- Dictated By: Isaac Garcia Dictated Date: 04/13/2025 17:11 ET Assigned Physician: Isaac Garcia Reviewed and Electronically Signed By: Isaac Garcia Signed Date: 04/13/2025 17:19 ET Workstation ID: [id number] Transcribed By: Self Edit Transcribed Date: 04/13/2025 17:11 ET Narrative 04/13/2025 5:19 PM EDT EXAM: SCREENING MAMMOGRAPHY, BILATERAL HISTORY: SCREENING. Family history of breast cancer; mother diagnosed age 60, sister, additional family members diagnosed with breast cancer. COMPARISON: 02/19/24, 02/06/23, 02/01/22, 10/27/20 TECHNIQUE: Synthesized CC and MLO projections of each breast. Tomosynthesis of each breast in the CC and MLO projections. ADDITIONAL IMAGING: None Computer-aided detection was employed with the iCAD ProFound AI 3-D. TISSUE DENSITY: The breasts are extremely dense, which lowers the sensitivity of mammography. (BI-RADS category D) FINDINGS: RIGHT BREAST: No suspicious mass. No suspicious calcification. No distortion. No additional suspicious right breast findings LEFT BREAST: No suspicious mass. No suspicious calcification. No distortion. No additional suspicious left breast findings Procedure Note Isaac Garcia MD - 04/13/2025 EXAM: SCREENING MAMMOGRAPHY, BILATERAL HISTORY: SCREENING. Family history of breast cancer; mother diagnosedage 60, sister, additional family members diagnosed with breast cancer. COMPARISON: 02/19/24, 02/06/23, 02/01/22, 10/27/20 TECHNIQUE: Synthesized CC and MLO projections of each breast.Tomosynthesis of each breast in the CC and MLO projections. ADDITIONAL IMAGING: None Computer-aided detection was employed with the Visual IQ AI 3-D. TISSUE DENSITY: The breasts are extremely dense, which lowers thesensitivity of mammography. (BI-RADS category D) FINDINGS: RIGHT BREAST: No suspicious mass. No suspicious calcification. No distortion. Noadditional suspicious right breast findings LEFT BREAST: No suspicious mass. No suspicious calcification. No distortion. Noadditional suspicious left breast findings IMPRESSION: No mammographic evidence of malignancy. No suspicious interval change. A negative mammogram in the presence of a clinically suspicious palpableabnormality does not preclude the possibility of malignancy or alter theindications for biopsy. ASSESSMENT: BI-RADS 1: NEGATIVE RECOMMENDATION(S): 1: Routine screening mammogram BILATERAL in 1 year. [facility] location[facility] [address], [address] -------- FINAL REPORT -------- Dictated By: Isaac Garcia Dictated Date: 04/13/2025 17:11 ET Assigned Physician: Isaac Garcia Reviewed and Electronically Signed By: Isaac Garcia Signed Date: 04/13/2025 17:19 ET Workstation ID: [id number] Transcribed By: Self Edit Transcribed Date: 04/13/2025 17:11 ET us Self Referral Sppl IMG BI PROCEDURES Final Resul t * Annual BMP Blood Test (10/01/2015) Annual BMP Blood Test Abstracted Historical Provider HEALTH MAINTENANCE Final Result * Lipid panel (10/01/2015) LDL/HDL Ratio 2 0 - 4 Triglycerides 49 0 - 150 mg/dL Cholesterol 150 0 - 200 mg/dL HDL 61 >=40 mg/dL LDL Cholesterol 79 0 - 100 mg/dL Blood Venous blood specimen / Unknown Historical Provider LAB BLOOD ORDERABLES Swapna l Result from Last 3 Months or Most Recently Relevant to Health Maintenance Insurance MEDICAID - [place] Care Teams Research Animal Facility Supervisor Relationship Specialty Start Date End Date Name, MD Garcia [address] [place] [address] PCP - General Internal Medicine 04/13/25
--- OUTSIDE RECORDS SUMMARY | 2025-10-19 12:08 | XMS_ITS | Encounter Summary ---
Author Organization [employer] Address [address] [place] [address] [place], [place] [address] Care Team Providers Care E Commerce Retailer Name Role Phone Name, Garcia AKINS Primary Care Provider [phone] Reason for Visit * Reason Comments Med Refill Encounter Details Date Type Department Care Team (Late Contact Info) Description 08/17/2023 Refill [facility] MEDICINE [address] [place], [place] [phone] Name, MD Garcia [address] [place] [address] Social History Tobacco Use Types Packs/Day Years [...] 9:00 AM EST Nutrition [facility] DIABETES/NUTRITION [address] [place], [place] [phone] [address] [place], [place] [phone] 01/19/2026 10:30 AM EST Office Visit [facility] MEDICINE [address] [place] [address] Name, [place] [address] documented as of this encounter Visit Diagnoses Not on filedocumented in this encounter Additional Health Concerns Assessment Noted Time PHQ-9 Depression Total Score: 2 10/31/20 22 9:21 AM EST documented as of this encounter Care Teams E Commerce Retailer Relationship Specialty Start Date End Date Name, [place] [address] PCP - General Family Medicine 04/12/16 documented as of this encounter
--- OUTSIDE RECORDS SUMMARY | 2025-10-19 12:08 | XMS_ITS | Encounter Summary ---
Author Organization [facility] Address [address] [facility] 7 [place] [address] Care Team Providers Care Net Developer Software Engineer C Name Role Phone Name, Garcia AKINS Primary Care Provider [phone] Reason for Visit * Reason Onset Date Comments Med Refill 04/26/2025 Encounter Details Date Type Department Care Team ([facility] st Contact Info) Description 04/26/2025 Refill [facility] MEDICINE [address] [place], [place] [phone] Name, MD Garcia [address] [place] [address] Social History Tobacco Use Types Packs/Day Years [...] Info) Description 11/01/2025 9:00 AM EST Nutrition [facility] DIABETES/NUTRITION [address] [place] [phone] [place] [address] 01/19/2026 10:30 AM EST Office Visit [facility] [address] [place] [phone] NameGarcia MD [address] [place] [phone] documented as of this encounter Visit Diagnoses Not on filedocumented in this encounter Additional Health Concerns Assessment Noted Time PHQ-9 Depression Total Score: 4 03/31/20 25 9:49 AM EDT documented as of this encounter Care Teams Net Developer Software Engineer C Relationship Specialty Start Date End Date Garcia Dc MD [address] [place] [phone] PCP - General Family Medicine 04/12/16 documented as of this encounter
--- OUTSIDE RECORDS SUMMARY | 2025-10-19 12:08 | XMS_ITS | Encounter Summary ---
Author Organization [employer] Address [address] [facility] [place] [facility] [address] [place] [address] Care Team Providers Care Surveillance Dual Rate Officer Name Role Phone Name, Garcia AKINS Primary Care Provider [phone] Reason for Visit * Reason Comments Med Refill Encounter Details Date Type Department Care Team ([facility] st Contact Info) Description 03/23/2024 Refill [facility] MEDICINE [address] [place], [place] [phone] Name, MD Garcia [address] [place] [address] Social History Tobacco Use Types Packs/Day Years [...] Info) Description 11/01/2025 9:00 AM EST Nutrition [facility] DIABETES/NUTRITION [address] [place] [address] [place] [address] 01/19/2026 10:30 AM EST Office Visit [facility] MEDICINE [address] [place] [address] Name, MD Garcia [address] [place] [address] documented as of this encounter Visit Diagnoses Not on filedocumented in this encounter Additional Health Concerns Assessment Noted Time PHQ-9 Depression Total Score: 0 02/27/20 24 9:04 AM EDT documented as of this encounter Care Teams Surveillance Dual Rate Officer Relationship Specialty Start Date End Date Name, MD Garcia [address] [place] [phone] PCP - General Family Medicine 04/12/16 documented as of this encounter
--- OUTSIDE RECORDS SUMMARY | 2025-10-19 12:08 | XMS_ITS | Encounter Summary ---
Author Organization [employer] Address [address] [facility] 7 [place] [address] Care Team Providers Care Manufacturing Millwright Name Role Phone Name, Garcia AKINS Primary Care Provider [phone] Reason for Visit * Reason Onset Date Comments Med Refill 07/11/2025 Encounter Details Date Type Department Care Team ([facility] st Contact Info) Description 07/11/2025 Refill [facility] MEDICINE [address] [place], [place] [phone] Name, MD Garcia [address] [place] [address] Neck pain Social History Tobacco Use Types [...] Info) Description 11/01/2025 9:00 AM EST Nutrition [facility] DIABETES/NUTRITION [address] [place] [phone] [place] [address] 01/19/2026 10:30 AM EST Office Visit [facility] MEDICINE [address] [place] [address] Garcia Dc MD [address] [place] [address] documented as of this encounter Visit Diagnoses Diagnosis Neck pain Cervicalgia documented in this encounter Additional Health Concerns Assessment Noted Time PHQ-9 Depression Total Score: 4 03/31/20 25 9:49 AM EDT documented as of this encounter Care Teams Manufacturing Millwright Relationship Specialty Start Date End Date Garcia Dc MD [address] [place] [phone] PCP - General Family Medicine 04/12/16 documented as of this encounter
[2025-10-19 13:50] LABS: Alanine Aminotransferase 15 U/L (0-31); Albumin Level 4.5 g/dL (3.5-5.0); Alkaline Phosphatase 59 U/L (39-117); Anion Gap 9 (12-20); Aspartate Amino Transferase 27 U/L (5-31); Blood Urea Nitrogen 21 mg/dL (9-16); Calcium 10.2 mg/dL (8.4-10.2); Carbon Dioxide 29 mmol/L (22-29); Chloride 107 mmol/L (96-108); Cholesterol 162 mg/dL (<200); Estimated Glomerular Filt Rate > 60; HDL Cholesterol 61 mg/dL (>40); Potassium 4.2 mmol/L (3.3-5.1); Sodium 141 mmol/L (135-145); Total Protein 7.7 g/dL (6.5-8.0); Triglycerides 56 mg/dL (<150)
[2025-10-20 05:08] LABS: ~HepC Num1 0.17 S/CO (0.00-0.79); ~Hepatitis C Antibody Nonreactive (Nonreactive)
== END 2025-10-19 10:17 | disposition home or self-care (01) ==
LOC: HO.HHCL 10:16
PROVIDERS: PCP Internal Medicine Geriatric Medicine; Visit Provider Internal Medicine Geriatric Medicine
DX: Z11.59 Encounter for screening for other viral diseases (principal); E66.811 Obesity, class 1; G43.009 Migraine without aura, not intractable, without status migrainosus; I10 Essential (primary) hypertension; Z68.34 Body mass index [BMI] 34.0-34.9, adult
CPT/HCPCS: 36415; 80053; 80061; 83036; 84443; 86803

== ENCOUNTER 2025-10-25 08:11 | Outpatient (REF) | payer MEDICAID, SELFPAY ==
--- OUTSIDE RECORDS SUMMARY | 2025-10-25 08:15 | XMS_ITS | Clinical Summary ---
Author Organization [employer] Address [address] [place] [address] 7t [place] [address] Care Team Providers Care Nursing Agency Manager Name Role Phone Name, Garcia AKINS Primary Care Provider [phone] Allergies Active Allergy Reactions Criticality Noted Date [...] Encounters Date Type Department Care Team Description 10/24/2025 Telephone [facility] [address] [place] [address] Garcia Dc MD Lab Orders 10/19/2025 9:45 AM EST Office Visit [facility] [address] [place] [address] Garcia Dc MD Benign essential hypertension (Primary Dx); Migraine without aura and without status migrainosus, not intractable; Class 1 obesity due to excess calories with serious comorbidity and body mass index (BMI) of 34.0 to 34.9 in adult; Vaccine refused by patient; Need for hepatitis C screening test 10/19/2025 Travel 10/05/2025 Refill [facility] [address] [place] [address] Garcia Dc MD Migraine without aura and without status migrainosus, not intractable; Neck pain; Radicular pain in left arm 08/20/2025 Refill [facility] [address] [place] [address] Garcia Dc MD Neck pain; Radicular pain in left arm 08/08/2025 Refill [facility] [address] [place] [address] Garcia Dc MD Benign essential hypertension; Migraine without aura and without status migrainosus, not intractable from Last 3 Months Immunizations Immunization Administration Dates Next Due Influenza injectable quadriv alent IIV4 with preservative 01/31/2020,10/10/2017 Influenza injectable quadriv alent preservative free 10/08/2021,08/10/2020,12/08/2014 Influenza, IIV3, injectable 09/11/2015,1 01/02/2013,09/10/2012,2009 Influenza, Unspecified 12/08/2014 Influenza, seasonal, injecta ble, preservative free 09/02/2024,10/31/2022,09/11/2015,2012,09/10/2012,12/11/2009 Moderna Covid-19 Vaccine 12+ 03/26/2021,02/27/20 21 Novel [id number], preservative-free 12/11/2009 PPD Test 06/04/2010 Pfizer Covid-19 Vaccine 12+ 06/07/2022, Pfizer Covid-19 Vaccine 12+ tesha-sucrose (Carranza Cap) [...] Info) Description 11/01/2025 9:00 AM EST Nutrition [facility] DIABETES/NUTRITION [address] [place] [address] Fartun Milton, FUAD [address] [place] [address] 01/19/2026 10:30 AM EST Office Visit [facility] [address] [place] [address] Name, MD Garcia [address] [place] [address] Health Maintenance Due Date Last Done Comments CT Colonography 1967 FIT DNA/Cologuard 1967 FIT 1967 FOBT 1967 HIV Screening 1967 Sigmoidoscopy 1967 Hepatitis B Vaccines (1 of 3 - 19+ 3-dose series) 1986 Pap Smear 1988 HPV/Cotest 1997 Pneumococcal Vaccine: 50+ Years (1 of 1 - PCV) 2017 COVID-19 Vaccine ( - season) 2025 06/07/2022, 06/07/2022, 10/10/2021, Additional history exists Influenza Vaccine (#1) 2025 , 10/31/2022, 10/08/2021, Additional history exists Depression Screening 03/31/2026 03/31/2025, 03/31/20 25 SDOH Screening 03/31/2026 03/31/2025 Mammogram 07/11/2026 07/11/2025, 06/24, 04/13/2025, Additional history exists Disability Screening 07/21/2026 07/21/2025 Alcohol/Substance Use Screening 07/22/2026 07/22/2025 Diabetes: Hemoglobin A1C 10/19/2026 025, 11/26/2024, 07/11/2022 Tobacco Screening 10/19/2026 10/19/2025 Colonoscopy 05/09/2028 05/09/2018, 05/07/2008 Colorectal Cancer Screening 05/09/2028 Lipid Panel 10/19/2030 10/19/2025, 01/2025, 07/15/2023, Additional history exists DTaP/Tdap/Td Vaccines (3 - Td or Tdap) 11/14/2032 11/14/2022, 2009 RSV Patients and Patients Aged 60 years or older (1 - 1-dose 75+ series) 2042 Zoster Vaccines Completed 06/07/2022, 04/01/2022 Hepatitis C Screening Completed 10/19/2025 Cervical Cancer Screening Discontinued HIB Vaccines Aged [...] Procedure Name Priority Date/Time Associated Diagnosis Comments HEPATITIS C AB W/REFL TO HCV RNA, QN, PCR Routine 10/19/2025 10:21 AM EST Need for hepatitis C screening test TSH W/REFLEX TO FT4 Routine 10/19/2025 1 0:21 AM EST Benign essential hypertension Class 1 obesity due to excess calories with serious comorbidity and body mass index (BMI) of 34.0 to 34.9 in adult Migraine without aura and without status migrainosus, not intractable HEMOGLOBIN A1C Routine 10/19/2025 10:21 AM EST Benign essential hypertension Class 1 obesity due to excess calories with serious comorbidity and body mass index (BMI) of 34.0 to 34.9 in adult Migraine without aura and without status migrainosus, not intractable LIPID PANEL, STANDARD Routine 10/19/2025 10:21 AM EST Benign essential hypertension Class 1 obesity due to excess calories with serious comorbidity and body mass index (BMI) of 34.0 to 34.9 in adult Migraine without aura and without status migrainosus, not intractable COMPREHENSIVE METABOLIC PANEL Routine 10/19/2025 10:21 AM EST Benign essential hypertension Class 1 obesity due to excess calories with serious comorbidity and body mass index (BMI) of 34.0 to 34.9 in adult Migraine without aura and without status migrainosus, not intractable HM MAMMOGRAPHY Routine 04/13/2025 COLONOSCOPY Routine 05/09/2018 from Last 3 Months or Most Recently Relevant to Health Maintenance Results * TSH W/Reflex to FT4 (10/19/2025 10:21 AM EST) TSH reflex Free T4 1.09 0.32 - 4.0 uIU/mL [facility] Blood Venous blood specimen / Unknown 10/19/2025 10:21 AM EST 10/19/2025 1:08 PM EST us Garcia Dc MD LAB BLOOD ORDERABLES Final Resul t Performing Organization Address [facility] de Phone Number [facility] [address] [place] [phone] * Hepatitis C Antibody with Reflex to HCV, RNA, Quantitative, Real-Time PCR (10/19/2025 10:21 AM EST) Hepatitis C Antibody Nonreactive Nonreactive [facility] Comment:Antibodies to HCV no t detected; does not exclude early acuteHCV infection. Blood Venous blood specimen / Unknown 10/19/2025 10:21 AM EST 10/19/2025 1:04 PM EST us Garcia Dc MD LAB BLOOD ORDERABLES Final Resul t Performing Organization Address [facility] de Phone Number [facility] [address] [place] [phone] * Hemoglobin A1c (10/19/2025 10:21 AM EST) Hemoglobin A1c 5.7 <6.0 % [facility] Comment:Hemoglobin A1C Refer ence Range Adults: 4.8 - 6.0 % Non diabetic: < 6.0 % Goal: < 7.0 %Additional Action Suggested: > 8.0 %Note: Hemoglobin A1c results are invalid for patients with abnormal amounts of HbF. Blood transfusions may impact the HbA1c concentration in the patient sample. Estimated Average Glucose 117 mg/dL [facility] Comment:eAG = Estimated ave rage glucose which is %A1C expressed asaverage glucose, using the formula of the L4H-IphyqeyKrfneuk Glucose study (ADAG), Diabetes Care, Vol.31,#8,Jun. 2007 Blood Venous blood specimen / Unknown 10/19/2025 10:21 AM EST 10/19/2025 11:33 AM EST us Garcia Dc MD LAB BLOOD ORDERABLES Final Resul t Performing Organization Address City/[facility]/ZIP Co de Phone Number [facility] [address] [place] [address] [phone] * Lipid Panel, Standard (10/19/2025 10:21 AM EST) Triglycerides 56 <150 mg/dL [facility] Comment:Desirable Triglyceri de: less than 150 mg/dLBorderline High Triglyceride 150-199 mg/dLHigh Triglyceride: 200-499 mg/dLVery High Triglyceride: greater than or equal to 5OO mg/dL Cholesterol 162 <200 mg/dL [facility] Comment:Desirable Cholestero l: less than 200 mg/dLBorderline High Cholesterol: 200-239 mg/dLHigh Cholesterol: greater than 239 mg/dL LDL Cholesterol Calculated 90 <100 mg/dL [facility] Comment:Desirable LDL: less than 100 mg/dLNear Optimal/Above Optimal LDL: 110- 129 mg/dLBorderline High LDL: 130-159 mg/dLHigh LDL: 160-189 mg/dLVery High LDL: greater than or equal to 190 mg/dL HDL Cholesterol 61 >40 mg/dL [facility] Comment:Desirable HDL: great er than 40 mg/dL Note: This HDL assay may give artificially low results in patients with liver disease. Blood Venous blood specimen / Unknown 10/19/2025 10:21 AM EST 10/19/2025 1:08 PM EST us Garcia Dc MD LAB BLOOD ORDERABLES Final Resul t Performing Organization Address City/[facility]/ZIP Co de Phone Number [facility] [address] [place] [address] [phone] * (ABNORMAL) Comprehensive Metabolic Panel (10/19/2025 10:21 AM EST) Sodium 141 135 - 145 mmol/L [facility] Potassium 4.2 3.3 - 5.1 mmol/L [facility] Chloride 107 96 - 108 mmol/L [facility] Carbon Dioxide 29 22 - 29 mmol/L [facility] Anion Gap 9(L) 12 - 20 [facility] Urea Nitrogen (BUN) 21(H) 9 - 16 mg/dL [facility] Creatinine, Serum 0.90 0.5 - 1.4 mg/dL [facility] Estimated Glomerular Filt Rate >60 [facility] Comment:Chronic Kidney Disea se: Estimated GFR < 60 mL/min/[id number] Kidney Disease: Estimated GFR < 15 mL/min/1.73m2 Glucose 89 60 - 115 mg/dL [facility] Calcium 10.2 8.4 - 10.2 mg/dL [facility] Bilirubin, Total 0.4 0.0 - 1.0 mg/dL [facility] Aspartate Amino Transferase 27 5 - 31 U/L [facility] Alanine Aminotransferase 15 0 - 31 U/L [facility] Total Protein 7.7 6.5 - 8.0 g/dL [facility] Albumin Level 4.5 3.5 - 5.0 g/dL [facility] Alkaline Phosphatase 59 39 - 117 U/L [facility] Blood Venous blood specimen / Unknown 10/19/2025 10:21 AM EST 10/19/2025 1:08 PM EST Garcia Dc MD LAB BLOOD ORDERABLES Final Resul t [facility] [address] [place] [address] [phone] * Mammography (04/13/2025) Mammogram BIRADS 1 Normal, Abnormal, BIRADS 1 , BIRADS 2 Anatomical Region Laterality Modality Other Historical Provider HEALTH MAINTENANCE Final Result * Colonoscopy (05/09/2018) Colonoscopy Normal Normal Comment:repeat colonoscopy i n 10yrs Historical Provider HEALTH MAINTENANCE Final Result from Last 3 Months or Most Recently Relevant to Health Maintenance Insurance C[employer] Care Teams Nursing Agency Manager Relationship Specialty Start Date End Date Name, MD Garcia [address] [place] [phone] PCP - General Family Medicine 04/12/16
--- OUTSIDE RECORDS SUMMARY | 2025-10-25 08:15 | XMS_ITS | Encounter Summary ---
Author Organization [employer] Address [address] [place] [address] 7 [place] [address] Care Team Providers Care Language Therapist Name Role Phone Name, Garcia AKINS Primary Care Provider Encounter Details Date Type Department Care Team (Late Contact Info) Description 04/25/2023 Abstract [facility] MEDICINE [address] [place] [phone] Name, MD Garcia [address] [place] [address] Social History Tobacco Use Types Packs/Day Years [...] Info) Description 11/01/2025 9:00 AM EST Nutrition [facility] DIABETES/NUTRITION [address] [place] [address] Fartun Milton, FUAD [address] [place] [address] 01/19/2026 10:30 AM EST Office Visit [facility] MEDICINE [address] [place] [address] Name, MD Garcia [address] [place] [address] documented as of this encounter Visit Diagnoses Not on filedocumented in this encounter Additional Health Concerns Assessment Noted Time PHQ-9 Depression Total Score: 2 10/31/20 22 9:21 AM EST documented as of this encounter Care Teams Language Therapist Relationship Specialty Start Date End Date NameGarcia MD [address] [place] [phone] PCP - General Family Medicine 04/12/16 documented as of this encounter
--- OUTSIDE RECORDS SUMMARY | 2025-10-25 08:15 | XMS_ITS | Encounter Summary ---
Author Organization [employer] Address [address] [facility] 7t [place] [address] Care Team Providers Care Juice Mixer Name Role Phone Name, Garcia AKINS Primary Care Provider [phone] Reason for Visit * Reason Comments Med Refill Encounter Details Date Type Department Care Team ([facility] st Contact Info) Description 03/23/2024 Refill [facility] MED[facility]INE [address] [place], [place] [phone] Name, MD Garcia [address] [place] [address] Social History Tobacco Use Types Packs/Day Years [...] Info) Description 11/01/2025 9:00 AM EST Nutrition [facility] DIABETES/NUTRITION [address] [place] [address] [place] [address] 01/19/2026 10:30 AM EST Office Visit [facility]INE [address] [place] [address] Name, MD Garcia [address] [place] [address] documented as of this encounter Visit Diagnoses Not on filedocumented in this encounter Additional Health Concerns Assessment Noted Time PHQ-9 Depression Total Score: 0 02/27/20 24 9:04 AM EDT documented as of this encounter Care Teams Juice Mixer Relationship Specialty Start Date End Date Name, MD Garcia [address] [place] [phone] PCP - General Family Medicine 04/12/16 documented as of this encounter
--- OUTSIDE RECORDS SUMMARY | 2025-10-25 08:15 | XMS_ITS | Encounter Summary ---
Author Organization [employer] Address [address] [facility] [address] [place] [address] Care Team Providers Care Build Manager Name Role Phone Name, Garcia AKINS Primary Care Provider [phone] Reason for Visit * Reason Onset Date Comments Med Refill 01/08/2024 Encounter Details Date Type Department Care Team ([facility] st Contact Info) Description 01/08/2024 Telephone [facility] MEDICINE [address] [place] [address] [phone] Name, MD Garcia [address] [place] [address] Med Refill Social History Tobacco Use Types [...] 9:41 AM EST Medication was sent to [facility] #[id number] on 10/31/23 #90 with 1 refill. * Telephone Encounter - Gerardo Oscar - 01/08/2024 9:22 AM EST TC from pt requesting medication refill. Medications needing refill: omeprazole (PriLOSEC) [address] capsule To be sent to: [facility] #[id number] documented in this encounter Plan of Treatment Upcoming Encounters Date Type Department Care Team (Late st Contact Info) Description 11/01/2025 9:00 AM EST Nutrition [facility] DIABETES/NUTRITION [address] [place] [address] Fartun Milton, FUAD [address] [place] [address] 01/19/2026 10:30 AM EST Office Visit [facility] MEDICINE [address] [place] [address] [phone] Name, MD Garcia [address] [place] [address] documented as of this encounter Visit Diagnoses Not on filedocumented in this encounter Additional Health Concerns Assessment Noted Time PHQ-9 Depression Total Score: 2 10/31/20 22 9:21 AM EST documented as of this encounter Care Teams Build Manager Relationship Specialty Start Date End Date Name, MD Garcia [address] [place] [address] PCP - General Family Medicine 04/12/16 documented as of this encounter
--- OUTSIDE RECORDS SUMMARY | 2025-10-25 08:15 | XMS_ITS | Encounter Summary ---
Author Organization [employer] Address [address] [facility] 7 [place] [address] Care Team Providers Care Icing Mixer Name Role Phone Name, Garcia AKINS Primary Care Provider [phone] Reason for Visit * Reason Onset Date Comments Med Refill 07/11/2025 Encounter Details Date Type Department Care Team ([facility] st Contact Info) Description 07/11/2025 Refill [facility] MEDICINE [address] [place], [place] [phone] Name, MD Garcia [address] [place] [address] Neck pain Social History Tobacco Use Types [...] Info) Description 11/01/2025 9:00 AM EST Nutrition [facility] DIABETES/NUTRITION [address] [place] [address] [place] [address] 01/19/2026 10:30 AM EST Office Visit [facility] MEDICINE [address] [place] [address] Garcia Dc MD [address] [place] [address] documented as of this encounter Visit Diagnoses Diagnosis Neck pain Cervicalgia documented in this encounter Additional Health Concerns Assessment Noted Time PHQ-9 Depression Total Score: 4 03/31/20 25 9:49 AM EDT documented as of this encounter Care Teams Icing Mixer Relationship Specialty Start Date End Date Garcia Dc MD [address] [place] [phone] PCP - General Family Medicine 04/12/16 documented as of this encounter
--- OUTSIDE RECORDS SUMMARY | 2025-10-25 08:15 | XMS_ITS | Encounter Summary ---
Author Organization [employer] Address [address] [place] [address] 7 [place] [address] Care Team Providers Care Instrumentation Engineer Name Role Phone Name, Garcia AKINS Primary Care Provider [phone] Reason for Visit * Reason Onset Date Comments Med Refill 05/20/2025 Encounter Details Date Type Department Care Team ([facility] st Contact Info) Description 05/20/2025 Refill [facility] MEDICINE [address] [place], [place] [phone] Name, MD Garcia [address] [place] [address] Neck pain; Radicular pain in left arm [...] Info) Description 11/01/2025 9:00 AM EST Nutrition [facility] DIABETES/NUTRITION [address] [place] [address] Fartun Milton, RD [address] [place] [address] 01/19/2026 10:30 AM EST Office Visit [facility] MEDICINE [address] [place] [phone] Garcia Dc MD [address] [place] [address] documented as of this encounter Visit Diagnoses Diagnosis Neck pain Cervicalgia Radicular pain in left arm Unspecified neuralgia, neuritis, and radiculitis documented in this encounter Additional Health Concerns Assessment Noted Time PHQ-9 Depression Total Score: 4 03/31/20 25 9:49 AM EDT documented as of this encounter Care Teams Instrumentation Engineer Relationship Specialty Start Date End Date Garcia Dc MD [address] [place] [address] PCP - General Family Medicine 04/12/16 documented as of this encounter
--- OUTSIDE RECORDS SUMMARY | 2025-10-25 08:15 | XMS_ITS | Encounter Summary ---
Author Organization [id number] Address [address] [facility] 7 [place] [address] Care Team Providers Care Personal Support Worker Name Role Phone Name, Garcia AKINS Primary Care Provider [phone] Reason for Visit * Reason Onset Date Comments Med Refill 10/30/2024 Encounter Details Date Type Department Care Team ([facility] st Contact Info) Description 10/30/2024 Refill [facility] MEDICINE [address] [place], [place] [phone] Name, MD Garcia [address] [place] [address] Social History Tobacco Use Types Packs/Day Years [...] EST Nutrition [facility] DIABETES/NUTRITION [address] [place] [phone] [place] [address] 01/19/2026 10:30 AM EST Office Visit [facility] MEDICINE [address] [place] [address] Name, MD Garcia [address] [place] [address] documented as of this encounter Visit Diagnoses Not on filedocumented in this encounter Additional Health Concerns Assessment Noted Time PHQ-9 Depression Total Score: 0 02/27/20 24 9:04 AM EDT documented as of this encounter Care Teams Personal Support Worker Relationship Specialty Start Date End Date Name, MD Garcia [address] [place] [phone] PCP - General Family Medicine 04/12/16 documented as of this encounter
--- OUTSIDE RECORDS SUMMARY | 2025-10-25 08:15 | XMS_ITS | Encounter Summary ---
Author Organization [employer] Address [address] [facility] 7 [place] [address] Care Team Providers Care Knifeman Name Role Phone Name, Garcia AKINS Primary Care Provider [phone] Encounter Details Date Type Department Care Team ([facility] Contact Info) Description 11/12/2023 Orders Only [facility] CHC MED & PEDS [address] [place], [place] [phone] Carmelo Ochoa MD [address] [place] [address] Neck pain Social History Tobacco Use Types [...] Info) Description 11/01/2025 9:00 AM EST Nutrition [facility] DIABETES/NUTRITION [address] [place] [address] [place] [address] 01/19/2026 10:30 AM EST Office Visit [facility] MEDICINE [address] [place] [address] Name, MD Garcia [address] [place] [address] documented as of this encounter Visit Diagnoses Diagnosis Neck pain Cervicalgia documented in this encounter Additional Health Concerns Assessment Noted Time PHQ-9 Depression Total Score: 2 10/31/20 22 9:21 AM EST documented as of this encounter Care Teams Knifeman Relationship Specialty Start Date End Date Name, MD Garcia [address] [place] [address] PCP - General Family Medicine 04/12/16 documented as of this encounter
--- OUTSIDE RECORDS SUMMARY | 2025-10-25 08:15 | XMS_ITS | Encounter Summary ---
Author Organization [employer] Address [address] [facility] 7 [place] [address] Care Team Providers Care Volleyball Assembler Name Role Phone Name, Garcia AKINS Primary Care Provider [phone] Reason for Visit * Reason Onset Date Comments Lab Orders 10/24/2025 Encounter Details Date Type Department Care Team ([facility] st Contact Info) Description 10/24/2025 Telephone [facility] MEDICINE [address] [place], [place] [phone] Name, MD Garcia [address] [place] [address] Lab Orders Social History Tobacco Use Types Packs/Day Years [...] encounter Miscellaneous Notes * Telephone Encounter - Lexy Hunt RN - 10/24/2025 12:22 PM EST TC placed to pt via [employer] ([facility]u ID#[id number]) regarding request for TB test. Pt reports they need the test for work. Advised pt lab order placed and they are able to go to the lab at theirconvenience. Pt verbalized understanding and denies questions at this time. * Telephone Encounter - Kristi Loyd - 10/24/2025 8:58 AM EST Tc from pt requesting an order for a TB test Contact pt at [phone] Need ergonomics engineer documented in this encounter Plan of Treatment Upcoming Encounters Date Type Department Care Team (Late st Contact Info) Description 11/01/2025 9:00 AM EST Nutrition [facility] DIABETES/NUTRITION [address] [place] [address] Fartun Milton, FUAD [address] [place], [place] [phone] 01/19/2026 10:30 AM EST Office Visit [facility] MEDICINE [address] [place] [address] Name, MD Garcia [address] [place] [address] Scheduled Orders Name Type Priority Associated Diagnoses Orde r Schedule T-SPOT .TB Lab Routine Screening-pulmonary TB Expected: 10/24/2025 (Approximate), Expires: 10/24/2026 documented as of this encounter Visit Diagnoses Diagnosis Screening-pulmonary TB- Primary Screening examination for pulmonary tuberculosis documented in this encounter Additional Health Concerns Assessment Noted Time PHQ-9 Depression Total Score: 4 03/31/20 25 9:49 AM EDT documented as of this encounter Care Teams Volleyball Assembler Relationship Specialty Start Date End Date Name, MD Garcia [address] [place] [address] PCP - General Family Medicine 04/12/16 documented as of this encounter
--- OUTSIDE RECORDS SUMMARY | 2025-10-25 08:15 | XMS_ITS | Encounter Summary ---
Author Organization [employer] Address [address] [place] [address] [address] Care Team Providers Care Doctor Of Osteopathy Name Role Phone Name, Garcia AKINS Primary Care Provider [phone] Reason for Visit * Reason Comments Med Refill Encounter Details Date Type Department Care Team ([facility] st Contact Info) Description 12/01/2023 Refill [facility] CHC MED & PEDS [address] [place] [address] Carmelo Ochoa MD [address] [place] [address] Neck pain Social History Tobacco Use Types [...] Info) Description 11/01/2025 9:00 AM EST Nutrition [facility] DIABETES/NUTRITION [address] [place] [address] Fartun Milton, FUAD [address] [place] [address] 01/19/2026 10:30 AM EST Office Visit [facility] MEDICINE [address] [place] [phone] NameGarcia MD [address] [place] [address] documented as of this encounter Visit Diagnoses Diagnosis Neck pain Cervicalgia documented in this encounter Additional Health Concerns Assessment Noted Time PHQ-9 Depression Total Score: 2 10/31/20 22 9:21 AM EST documented as of this encounter Care Teams Doctor Of Osteopathy Relationship Specialty Start Date End Date NameGarcia MD [address] [place] [address] PCP - General Family Medicine 04/12/16 documented as of this encounter
--- OUTSIDE RECORDS SUMMARY | 2025-10-25 08:15 | XMS_ITS | Clinical Summary ---
Author Organization [address] Address [address] [place] [address] Phone Care Team Providers Care Hot Header Operator Name Role Phone No, Pcp (Do Not Change Name) Primary Care Provid er Unavailable Social History Tobacco Use Types Packs/Day Years Used Date Smoking Tobacco: Never Assessed Comments Unknown Sex and Gender Information Value Date Recorded Sex Assigned at Not on file Legal Sex Female 3:52 PM EDT Gender Identity Not on file Sexual Orientation Not on file Last Filed Vital Signs Vital Sign Reading Time Taken Comments Blood Pressure 126/84 06/25/2025 5:12 PM EDT Pulse 89 06/25/2025 5:12 PM EDT Temperature 36.1 C (97 F) 06/25/2025 3:57 PM EDT Respiratory Rate 18 06/25/2025 5:12 PM EDT Oxygen Saturation 97% 06/25/2025 5:12 PM EDT Inhaled Oxygen Concentration - - Weight - - Height - - Body Mass Index - - Plan of Treatment Health Maintenance Due Date Last Done Comments HIV screening 1980 Hepatitis C screening 1985 Cervical cancer screening 1988 Lipid disorder screening 2007 Colon cancer screening, Colonoscopy 2012 Diabetes screening 2012 Pneumococcal Vaccine (50+ years) (1 of 1 - PCV) 2017 Influenza vaccine 06/24/2025 09/02/2024, , 10/08/2021, Additional history exists Covid-19 vaccine series (2024- season) 2025 06/07/2022, 10/10/2021, 03/26/2021, Additional history exists Breast cancer screening 04/13/2027 04/13/2025, 04/13 Tetanus adult (Td q 10,TDAP once) 11/14/2032 11/14/2022, 2009 RSV Immunization (1 - 1-dose 75+ series) 2042 Shingles vaccine (Shingrix) Completed 06/07/2022, 0 04/01/2022 Meningococcal B Vaccine Aged Out No l onger eligible based on patient's age to complete this topic Meningococcal Vaccine Aged Out No ion luis eligible based on patient's age to complete this topic Insurance [address] [place] [address] [employer] [address] [place] [address] [employer] [address]T [address] [place] [address] [address] [place] [id number] [place] [address] Care Teams Hot Header Operator Relationship Specialty Start Date End Date No, Pcp (Do Not Change Name) PCP - General 06/25/25
--- OUTSIDE RECORDS SUMMARY | 2025-10-25 08:15 | XMS_ITS | Clinical Summary ---
Author Organization [facility] Address [address] [place] [phone] Phone Care Team Providers Care Illuminating Engineer Name Role Phone Name, Garcia AKINS Primary Care Provider [phone] Allergies No known active allergies Medications metoprolol [...] Description 08/29/2025 1:20 PM EDT Office Visit [address] [address] David Moya MD Lump in [...] HISTORICAL TUBAL LIGATION OTHER SURGICAL HISTORY PROCEDURE: CT HYSTEROSCOPY ENDOMETRIAL ABLATION SALPINGOOPHORECTOMY 12/19/2020 PROCEDURE: CT LAPAROSCOPY W/RMVL ADNEXAL STRUCTURES; COMMENT: right oopherectomy and bilateral salpingectomy Medical History Medical History Date Comments Esophageal reflux DX:Esophageal reflux Benign essential hypertension 04/02/2018 DX :Benign essential hypertension Severe obesity (BMI 35.0-39. 9) with comorbidity ([facility] V24, [facility] V28) 2009 DX:Severe obesity (BMI 35.0- 39.9) with comorbidity ([facility]) At high risk for breast cancer [...] 10:20 AM EDT Office Visit Breast Care [facility] [address] [place] [phone] David Moya MD [address] [place] [address] Health Maintenance Due Date Last Done Comments [...] year. 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 TISSUE DENSITY: The breasts are [...] year. Mammography location: [facility] [address], [address] -------- FINAL REPORT -------- Dictated By: Isaac Garcia Dictated Date: 04/13/2025 17:11 ET Assigned Physician: Isaac Garcia Reviewed and Electronically Signed By: Isaac Garcia Signed Date: 04/13/2025 17:19 ET Workstation ID: [id number] Transcribed By: Self Edit Transcribed Date: 04/13/2025 [...] Maintenance Insurance MEDICAID - [place] Care Teams Illuminating Engineer Relationship Specialty Start Date End Date Name, MD Garcia [address] [place] [address] PCP - General Internal Medicine 04/13/25
--- OUTSIDE RECORDS SUMMARY | 2025-10-25 08:15 | XMS_ITS | Encounter Summary ---
Author Organization [employer] Address [address] [facility] 7 [place] [address] Care Team Providers Care Cyber Engineer Name Role Phone Name, Garcia AKINS Primary Care Provider [phone] Reason for Visit * Reason Onset Date Comments Med Refill 07/08/2025 Encounter Details Date Type Department Care Team ([facility] st Contact Info) Description 07/08/2025 Refill [facility] MEDICINE [address] [place], [place] [phone] Name, MD Garcia [address] [place] [address] Benign essential hypertension; Migraine without aura and [...] Info) Description 11/01/2025 9:00 AM EST Nutrition [facility] DIABETES/NUTRITION [address] [place] [address] Fartun Milton, RD [address] [place] [address] 01/19/2026 10:30 AM EST Office Visit [facility] MEDICINE [address] [place] [phone] Garcia Dc MD [address] [place] [address] documented as of this encounter Visit Diagnoses Diagnosis Benign essential hypertension Essential hypertension, benign Migraine without aura and without status migrainosus, not intractable documented in this encounter Additional Health Concerns Assessment Noted Time PHQ-9 Depression Total Score: 4 03/31/20 25 9:49 AM EDT documented as of this encounter Care Teams Cyber Engineer Relationship Specialty Start Date End Date Garcia Dc MD [address] [place] [address] PCP - General Family Medicine 04/12/16 documented as of this encounter
--- OUTSIDE RECORDS SUMMARY | 2025-10-25 08:15 | XMS_ITS | Encounter Summary ---
Author Organization [employer] Address [address] [facility] 7 [place] [address] Care Team Providers Care Umbrella Tipper Machine Name Role Phone Name, Garcia AKINS Primary Care Provider [phone] Reason for Visit * Reason Onset Date Comments Results 11/07/2023 Encounter Details Date Type Department Care Team ([facility] Contact Info) Description 11/07/2023 Telephone [facility] MEDICINE [address] [place], [place] [phone] Name, MD Garcia [address] [place] [address] Results Social History Tobacco Use Types Packs/Day [...] Info) Description 11/01/2025 9:00 AM EST Nutrition [facility] DIABETES/NUTRITION [address] [place] [address] [place] [address] 01/19/2026 10:30 AM EST Office Visit [facility] MEDICINE [address] [place] [phone] Name, MD Garcia [address] [place] [address] documented as of this encounter Visit Diagnoses Not on filedocumented in this encounter Additional Health Concerns Assessment Noted Time PHQ-9 Depression Total Score: 2 10/31/20 22 9:21 AM EST documented as of this encounter Care Teams Umbrella Tipper Machine Relationship Specialty Start Date End Date Name, MD Garcia [address] [place] [address] PCP - General Family Medicine 04/12/16 documented as of this encounter
--- OUTSIDE RECORDS SUMMARY | 2025-10-25 08:15 | XMS_ITS | Encounter Summary ---
Author Organization [employer] Address [address] [place] [address] [address] Care Team Providers Care Data Analyst Name Role Phone Name, Garcia AKINS Primary Care Provider [phone] Reason for Visit * Reason Comments Med Refill Encounter Details Date Type Department Care Team (Late Contact Info) Description 08/17/2023 Refill [facility] MEDICINE [address] [place], [place] [phone] Name, MD Garcia [address] [place] [address] Social History Tobacco Use Types Packs/Day Years [...] 11/01/2025 9:00 AM EST Nutrition [facility] DIABETES/NUTRITION [address] [place], [place] [phone] [place], [place] [phone] 01/19/2026 10:30 AM EST Office Visit [facility] MEDICINE [address] [place] [address] Name, [place] [address] documented as of this encounter Visit Diagnoses Not on filedocumented in this encounter Additional Health Concerns Assessment Noted Time PHQ-9 Depression Total Score: 2 10/31/20 22 9:21 AM EST documented as of this encounter Care Teams Data Analyst Relationship Specialty Start Date End Date Name, [place] [address] PCP - General Family Medicine 04/12/16 documented as of this encounter
--- OUTSIDE RECORDS SUMMARY | 2025-10-25 08:15 | XMS_ITS | Encounter Summary ---
Author Organization [employer] Address [address] [facility] 7 [place] [address] Care Team Providers Care In Flight Crew Member Name Role Phone Name, Garcia AKINS Primary Care Provider [phone] Reason for Visit * Reason Onset Date Comments Med Refill 08/08/2025 Encounter Details Date Type Department Care Team (Late st Contact Info) Description 08/08/2025 Refill [facility] MEDICINE [address] [place], [place] [phone] Name, MD Garcia [address] [place] [address] Benign essential hypertension; Migraine without aura and [...] Info) Description 11/01/2025 9:00 AM EST Nutrition [facility] DIABETES/NUTRITION [address] [place] [address] Fartun Milton, RD [address] [place] [address] 01/19/2026 10:30 AM EST Office Visit [facility] MEDICINE [address] [place] [phone] Garcia Dc MD [address] [place] [address] documented as of this encounter Visit Diagnoses Diagnosis Benign essential hypertension Essential hypertension, benign Migraine without aura and without status migrainosus, not intractable documented in this encounter Additional Health Concerns Assessment Noted Time PHQ-9 Depression Total Score: 4 03/31/20 25 9:49 AM EDT documented as of this encounter Care Teams In Flight Crew Member Relationship Specialty Start Date End Date Garcia Dc MD [address] [place] [address] PCP - General Family Medicine 04/12/16 documented as of this encounter
--- OUTSIDE RECORDS SUMMARY | 2025-10-25 08:15 | XMS_ITS | Encounter Summary ---
Author Organization [employer] Address [address] [facility] 7 [place] [address] Care Team Providers Care Services Advisor Name Role Phone Name, Garcia AKINS Primary Care Provider [phone] Reason for Visit * Reason Onset Date Comments Med Refill 04/26/2025 Encounter Details Date Type Department Care Team ([facility] st Contact Info) Description 04/26/2025 Refill [facility] MEDICINE [address] [place], [place] [phone] Name, MD Garcia [address] [place] [address] Social History Tobacco Use Types Packs/Day Years [...] Info) Description 11/01/2025 9:00 AM EST Nutrition [facility] DIABETES/NUTRITION [address] [place] [address] [place] [address] 01/19/2026 10:30 AM EST Office Visit [facility] MEDICINE [address] [place] [address] NameGarcia MD [address] [place] [address] documented as of this encounter Visit Diagnoses Not on filedocumented in this encounter Additional Health Concerns Assessment Noted Time PHQ-9 Depression Total Score: 4 03/31/20 25 9:49 AM EDT documented as of this encounter Care Teams Services Advisor Relationship Specialty Start Date End Date Garcia Dc MD [address] [place] [address] PCP - General Family Medicine 04/12/16 documented as of this encounter
[2025-10-28 05:34] LABS: TS Negative Control Passed; TS Panel A 0; TS Panel B 0; TS Positive Control Passed; TSpotTB Negative (Negative)
== END 2025-10-25 08:12 | disposition home or self-care (01) ==
LOC: HO.HHCL 08:11
PROVIDERS: PCP Internal Medicine Geriatric Medicine; Visit Provider Internal Medicine Geriatric Medicine
DX: Z11.1 Encounter for screening for respiratory tuberculosis (principal)
CPT/HCPCS: 36415; 86481